=== PATIENT | female | born 1955 | race Caucasian/White ===

== ENCOUNTER → 2017-12-26 | Outpatient (CLI) | payer MEDICARE ==
--- NOTE | 2017-12-26 14:35 | RADIOLOGY REPORT (SQ) ---
EXAM DESCRIPTION: LUMBAR SPINE W/FLEX/EXT COMPLETED DATE/TIME: 12/26/2017 1:45 pm REASON FOR STUDY: LOW BACK PAIN M54.5 LOW BACK PAIN COMPARISON: None. NUMBER OF VIEWS: Seven views. TECHNIQUE: AP, lateral, obliques, flexion, extension, and sacral radiographic images acquired. LIMITATIONS: None. FINDINGS: MINERALIZATION: Normal. SEGMENTATION: Normal. No transitional anatomy. ALIGNMENT: Normal. FLEXION/EXTENSION: No instability. VERTEBRAE: Maintained height. No fracture or worrisome bone lesion. DISCS: Disc space narrowing with osteophytes at T12-L1. POSTERIOR ELEMENTS: Pedicles and facets are intact. No pars defect or posterior arch defects. HARDWARE: None in the spine. PARASPINAL SOFT TISSUES: Normal. PELVIS: Intact as visualized. No fractures or worrisome bone lesions. SI joints intact. OTHER: No other significant finding. IMPRESSION: DEGENERATIVE DISC DISEASE AT T12-L1. NO INSTABILITY ON FLEXION/EXTENSION. TECHNICAL DOCUMENTATION: JOB ID: [id number] [employer]- All Rights Reserved Reading location - IP/workstation name: [email or web address]
== END ==
LOC: OD 13:17
PROVIDERS: ATTEND Nurse Practitioner Family
DX: M54.5 Low back pain (principal); M51.35 Other intervertebral disc degeneration, thoracolumbar region
CPT/HCPCS: 72114

== ENCOUNTER 2018-05-04 23:28 | Emergency (ER) | payer MEDICARE, MEDICAID ==
[2018-05-04] MEDS ORDERED: ACETAMINOPHEN 325 MG TABLET PO ONE (23:30)
[2018-05-04] MEDS ORDERED: ACETAMINOPHEN 325 MG TABLET ONE (23:35)
[2018-05-04] MEDS ORDERED: MORPHINE SULFATE 10 MG/ML INJ IV PRN (23:56)
[2018-05-04] MEDS ORDERED: DIPH/PERTUSS(ACELL)/TETANUS VAC/PF 0.5 ML SYR (>=10YO) IM ONE (23:56)
[2018-05-04] MEDS ORDERED: PROPOFOL INJ 200 MG/20 ML VIAL IV ONE (23:56)
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
[2018-05-05 01:51] VITALS: BP 171/84
--- NOTE | 2018-05-05 08:15 | RADIOLOGY REPORT (SQ) ---
EXAM DESCRIPTION: FOREARM LEFT; NOT FOR OR FLUORO TO 1 HR COMPLETED DATE/TIME: 05/05/2018 1:23 am REASON FOR STUDY: REDUCTION COMPARISON: 05/04/2018 left forearm two views FLUOROSCOPY TIME: 8 seconds 7 digital C-arm images saved to PACS. TECHNIQUE: Intra-operative images acquired during surgical procedure to evaluate progress. NUMBER OF IMAGES: 7 digital C-arm images saved to pac's LIMITATIONS: None. FINDINGS: Intra procedural imaging demonstrates closed reduction of a distal left radius and ulna me taphysis fracture with mild persistent dorsal angulation. Please see the operative report for furthe r details IMPRESSION: Intra procedural imaging and fluoro COMMENT: Quality ID [id number]: Final reports for procedures using fluoroscopy that document radiation exp osure indices, or exposure time and number of fluorographic images (if radiation exposure indices are not available) Please consult full operative report of the attending physician for description of the procedure. TECHNICAL DOCUMENTATION: JOB ID: [id number] [employer]- All Rights Reserved Reading location - IP/workstation name: [email or web address]
--- NOTE | 2018-05-05 08:15 | RADIOLOGY REPORT (SQ) ---
EXAM DESCRIPTION: FOREARM LEFT; NOT FOR OR FLUORO TO 1 HR COMPLETED DATE/TIME: 05/05/2018 1:23 am REASON FOR STUDY: REDUCTION COMPARISON: 05/04/2018 left forearm two views FLUOROSCOPY TIME: 8 seconds 7 digital C-arm images saved to PACS. TECHNIQUE: Intra-operative images acquired during surgical procedure to evaluate progress. NUMBER OF IMAGES: 7 digital C-arm images saved to pac's LIMITATIONS: None. FINDINGS: Intra procedural imaging demonstrates closed reduction of a distal left radius and ulna me taphysis fracture with mild persistent dorsal angulation. Please see the operative report for furthe r details IMPRESSION: Intra procedural imaging and fluoro COMMENT: Quality ID [id number]: Final reports for procedures using fluoroscopy that document radiation exp osure indices, or exposure time and number of fluorographic images (if radiation exposure indices are not available) Please consult full operative report of the attending physician for description of the procedure. TECHNICAL DOCUMENTATION: JOB ID: [id number] [employer]- All Rights Reserved Reading location - IP/workstation name: [email or web address]
== END 2018-05-05 01:50 | disposition home or self-care (01) ==
LOC: ER 23:28
DX: S06.9X9A Unspecified intracranial injury with loss of consciousness of unspecified duration, initial encounter (principal); S52.502A Unspecified fracture of the lower end of left radius, initial encounter for closed fracture; S52.602A Unspecified fracture of lower end of left ulna, initial encounter for closed fracture; S50.811A Abrasion of right forearm, initial encounter; S00.81XA Abrasion of other part of head, initial encounter; R51 Headache; Y04.8XXA Assault by other bodily force, initial encounter; Y92.009 Unspecified place in unspecified non-institutional (private) residence as the place of occurrence of the external cause; I10 Essential (primary) hypertension; J44.9 Chronic obstructive pulmonary disease, unspecified; G89.29 Other chronic pain
CPT/HCPCS: 99285; 99152; 90471; 73090 ×2; 76000; 70450; 72125; 90715; 25565; A9270; J2704

== ENCOUNTER 2018-05-07 16:57 | Day surgery (SDC) | payer MEDICARE, MEDICAID ==
[~2018-05-07 16:57] MED LIST: SUCCINYLCHOLINE CHLORIDE INJ 200 MG/10 ML VIAL ONE
[2018-05-07 17:47] LABS: APPEARANCE,URINE SLIGHTLY-CLOUDY; BILIRUBIN,URINE NEGATIVE (NEGATIVE); COLOR,URINE YELLOW; GLUCOSE, URINE NEGATIVE (NEGATIVE); KETONES,URINE TRACE mg/dL (NEGATIVE); LEUKOCYTE ESTERASE,URINE SMALL (NEGATIVE); NITRITE,URINE NEGATIVE (NEGATIVE); PROTEIN,URINE NEGATIVE (NEGATIVE)
[2018-05-07] MEDS ORDERED: BUPIVACAINE HCL 0.5 % INJ/PF 30 ML SDV ONE (17:56)
[2018-05-07] MEDS ORDERED: [UNRECOGNIZED DRUG - OTHER] IV ONE (18:00)
[2018-05-07] MEDS ORDERED: D5W IV ONE (18:00)
[2018-05-07 18:01] LABS: HEMATOCRIT 35.2 % (36.0-47.0); MEAN CORPUSCULAR HEMOGLOBIN 28.9 pg (27.0-33.4); MEAN CORPUSCULAR VOLUME 85 fl (80-97); PLATELET COUNT 151 10^3/uL (150-450); RED BLOOD COUNT 4.14 10^6/uL (3.72-5.28); RED CELL DISTRIBUTION WIDTH 15.1 % (11.5-14.0); WHITE BLOOD COUNT 4.5 10^3/uL (4.0-10.5)
[2018-05-07] MEDS ORDERED: FENTANYL CITRATE INJ/PF 100 MCG/2 ML AMPUL ONE ×2 (18:03→18:05)
[2018-05-07] MEDS ORDERED: FENTANYL CITRATE INJ/PF 250 MCG/5 ML AMPULE ONE (18:03)
[2018-05-07] MEDS ORDERED: PROPOFOL INJ 200 MG/20 ML VIAL IV ONE (18:04)
[2018-05-07] MEDS ORDERED: ONDANSETRON HCL INJ/PF 4 MG/2 ML SDV ONE (18:04)
[2018-05-07] MEDS ORDERED: MIDAZOLAM 2 MG/2 ML INJ ONE (18:04)
[2018-05-07] MEDS ORDERED: DEXAMETHASONE SOD PHOSPHATE INJ 4 MG/1 ML VIAL ONE ×2 (18:04→18:05)
[2018-05-07] MEDS ORDERED: FAMOTIDINE INJ/PF 20 MG/2 ML SDV IV ONE (18:05)
[2018-05-07] MEDS ORDERED: METOCLOPRAMIDE HCL INJ/PF 10 MG/2 ML SDV ONE (18:05)
[2018-05-07 18:15] LABS: ANION GAP 9 (5-19); BLOOD UREA NITROGEN 16 mg/dL (7-20); CARBON DIOXIDE 26 mmol/L (22-30); CHLORIDE 107 mmol/L (98-107); GLUCOSE 87 mg/dL (75-110); POTASSIUM 3.8 mmol/L (3.6-5.0); SODIUM 142.1 mmol/L (137-145)
--- NOTE | 2018-05-07 18:28 | EKG REPORT ---
SEVERITY:- NORMAL ECG - SINUS RHYTHM : Confirmed by: Shane Dillon MD 07-May-2018 18:27:41
--- NOTE | 2018-05-07 18:43 | RADIOLOGY REPORT (SQ) ---
EXAM DESCRIPTION: CHEST SINGLE VIEW COMPLETED DATE/TIME: 05/07/2018 5:41 pm REASON FOR STUDY: Pre Op COMPARISON: 06/04/2012 EXAM PARAMETERS: NUMBER OF VIEWS: One view. TECHNIQUE: Single frontal radiographic view of the chest acquired. RADIATION DOSE: NA LIMITATIONS: None. FINDINGS: LUNGS AND PLEURA: No opacities, masses or pneumothorax. No pleural effusion. MEDIASTINUM AND HILAR STRUCTURES: No masses. Contour normal. HEART AND VASCULAR STRUCTURES: Heart normal in size. Normal vasculature. BONES: No acute findings. HARDWARE: None in the chest. OTHER: No other significant finding. IMPRESSION: NO ACUTE RADIOGRAPHIC FINDING IN THE CHEST. TECHNICAL DOCUMENTATION: JOB ID: [id number] [employer]- All Rights Reserved Reading location - IP/workstation name: [email or web address]
[2018-05-07] MEDS ORDERED: FENTANYL CITRATE INJ/PF 100 MCG/2 ML AMPUL IV PRN ×3 (18:54)
[2018-05-07] MEDS ORDERED: PROMETHAZINE HCL INJ 25 MG/1 ML VIAL IV PRN ×2 (18:54)
[2018-05-07] MEDS ORDERED: DIPHENHYDRAMINE HCL 50 MG/ML VIAL IV PRN (18:54)
[2018-05-07] MEDS ORDERED: ONDANSETRON HCL INJ/PF 4 MG/2 ML SDV IV PRN ×2 (18:54→20:00)
[2018-05-07] MEDS ORDERED: MORPHINE SULFATE 10 MG/ML INJ IV PRN ×2 (18:54→20:00)
[2018-05-07] MEDS ORDERED: MEPERIDINE HCL/PF INJ 25 MG/1 ML DISP.SYRIN IV PRN (18:54)
--- NOTE | 2018-05-07 20:04 | Operative Report ---
Operative Report DATE OF SURGERY: 05/07/18 PREOPERATIVE DIAGNOSIS: Left extra-articular distal radius fracture with associated distal ulnar fracture. Left carpal tunnel syndrome POSTOPERATIVE DIAGNOSIS: Same OPERATION: Open reduction of fixation left extra-articular distal radius fracture with nonoperative treatment distal ulna fracture. Open carpal tunnel release SURGEON: PRIYA DAVISON ANESTHESIA: GA COMPLICATIONS: None ESTIMATED BLOOD LOSS: Minimal PROCEDURE: Indication for above procedure: 62-year-old female who sustained a fall onto her outstretched left wrist. She was seen at the emergency room where x-rays demonstrated displaced distal radius fracture closed reduction was performed. She followed up at my office at which point she was also found to have numbness and tingling which was present at the initiation of the injury. After discussing treatment options including operative versus nonoperative intervention. Joint decision was made to proceed with operative treatment. Procedure In Detail: Patient was seen and evaluated in the preoperative holding area. The LEFT upper extremity was initialized and marked. Patient received 2g of Ancef IV for bacterial prophylaxis. Patient was taken back to the operative room where transferred to the operative table and placed under general anesthesia. Once they were adequately anesthetized and a nonsterile tourniquet was placed on his upper extremity. A surgical team debriefing was performed ensuring all instrumentation was available, the surgical procedure was discussed with possible concerns reviewed. The upper extremity was prepped with chlorhexidine and alcohol and draped in a sterile fashion. A timeout was done identifying correct patient, procedure and extremity everyone in attendance agree with this and verbalized no concerns.The extremity was exsanguinated the tourniquet was inflated to 250 mmHg. A longitudinal skin incision was made via a volar approach of Joaquín along the FCR tendon sheath. The FCR tendon sheath was opened and the FCR retracted ulnarly, the palmar cutaneous branch of the median nerve was identified and protected throughout the entirety of the case. The radial artery was identified and retracted radially. Blunt dissection was performed to the FPL which was carefully sweeped ulnarly. This brought me to the pronator quadratus which was elevated off of the distal radius via sharp dissection with a 15 blade to allow later repair. The fracture was then identified and a reduction maneuver was performed utilizing a Prim elevator. Acceptable reduction was then obtained and a Acumed 3 hole volar distal radius plate was placed into position and fixated with a K wire distally x2. AP and lateral radiographs were then obtained demonstrating appropriate placement of the plate and acceptable reduction of the fracture. Using a reduction tenaculum I was able to bring the plate down to bone distally. After drilling distally a cortical screw was used bringing the plate further down to bone, avoiding any liftoff of the plate from the volar cortex that could cause flexor tendon irritation post- operativley. Drilling the near cortex and to but not thru the far cortex a locking screw was then placed in the remaining holes. The previous cortex screw was removed and replaced with a locking screw. Two additional screws were placed into the styloid giving further stability to the radial styloid piece. AP and lateral radius were then done confirming appropriate placement of plate with no evidence of penetration intra-articular or within the DRUJ. I then turned my attention to the proximal screws. I drilled bicortically bringing the plate down to bone with a cortex screw. The remaining 2 holes proximally were drilled bicortically placing the appropriate size cortex in the proximal most hole and a locking screw in the distal shaft hole. AP and lateral radiographs were done confirming appropriate placement of the plate and reduction of the fracture there was pentecostalism of radial height, radial inclination and volar tilt. No evidence of dorsal screw prominence or intra- articular penetration of the DRUJ or radiocarpal joint. Longitudinal skin incision was made in line with the radial border of the ring finger proximal to Watkins's cardinal line to the distal wrist flexion crease. Blunt dissection performed. The palmar fascia was then incised the skin incision. The transverse carpal ligament was incised beginning proximally and extending distally within the thenar musculature the recurrent motor branch was identified indicative of a transligamentous branch this was protected while completing carpal tunnel release. The volar antebrachial fascia was then released as well. Through the distal radius incision the median nerve and palmar cutaneous branch once again identified there is no evidence of nerve injury. Tourniquet was deflated. Any peripheral bleeding was controlled until the wound was dry. The wound was copiously irrigated with normal saline. There was no evidence of DRUJ instability on examination, Negative Morley's test, No crepitus with range of motion at the radiocarpal joint or DRUJ. I then closed the pronator quadratus with interrupted 3-0 Vicryl suture. Subcutaneous tissues were closed with interrupted 4-0 Monocryl suture. The skin incisions were closed with a running horizontal mattress 4-0 nylon suture which was reinforced with Dermabond and Steri-Strips. 20 mL of 0.5% Marcaine were injected for postoperative pain control. Was dressed with sterile 4 x 4's and patient was placed in a well-padded volar splint with bias wrap. Sponge counts, instrument counts and needle counts were correct. There was no intraoperative complications patient tolerated procedure well stable to PACU. Postoperative plan: Patient will be switched to a Exos brace at her first postoperative followup visit and begin range of motion. Patient is encouraged to start vitamin C 500 mg daily for 51 days. Will obtain radiographs at followup of the wrist.
--- NOTE | 2018-05-07 20:04 | Discharge Summary ---
Discharge Summary (SDC) - Discharge Final Diagnosis: Left distal radius/ulna fracture, carpal tunnel syndrome Date of Surgery: 05/07/18 Discharge Date: 05/07/18 Condition: Good Treatment or Instructions: Schedule Follow Up w/ Dr. Scott Garrett @ [facility] to be seen in 10-14 days or as scheduled [place]: [place]: [employer]: Ice and elevate Keep splint clean/dry/intact. If your fingers become numb please unwrap the Gaetano wrap but leave the splint in place, if the sensation does not return within 30 minutes please return to the emergency department. May begin finger range of motion attempting to make full fist. Please use ibuprofen (Motrin or Advil) 600-800 mg every 8 hours as needed for pain or fever DO NOT TAKE w/ TORADOL may use once TORADOL complete. You may also use acetaminophen (Tylenol) 1000 mg every 4-6 hours as needed for pain or fever. Please be aware that many medications contain acetaminophen, do not exceed a total of 1000 mg of acetaminophen every 6 hours. If ibuprofen and acetaminophen are not sufficient for your pain you may take the Percocet/Clawson. Please be aware that the Percocet/Clawson does contain Tylenol. Stool softener of choice when on pain medication. Prescriptions: Ketorolac Tromethamine [Toradol 10 mg Tablet] 10 mg PO Q8HP PRN #10 tablet PRN Reason: Hydrocodone/Acetaminophen [Clawson 5-325 mg Tablet] 1 tab PO Q6 PRN #30 tablet PRN Reason: Referrals: ELVER SEYMOUR MD [Primary Care Provider] - Discharge Diet: As Tolerated Respiratory Treatments at Home: Deep Breathing/Coughing Discharge Activity: No Lifting Over 10 Pounds, No Lifting/Push/Pulling Report the Following to Your Physician Immediately: Fever over 101 Degrees, Unusual Bleeding, Redness, Swelling, Warmth, Increased Soreness, Numbness, Tingling Sensation
[2018-05-07] MEDS ORDERED: ROPIVACAINE HCL 0.5% INJ/PF (5 MG/1 ML) 30 ML SDV ONE (20:14)
[2018-05-07] MEDS ORDERED: LIDOCAINE 2% INJ (20 MG/ML) 20 ML MDV ONE (20:15)
[2018-05-07] MEDS ORDERED: LIDOCAINE 2%/EPINEPHRINE INJ 20 ML VIAL ONE (20:16)
[2018-05-07 22:42] VITALS: BP 133/62
--- NOTE | 2018-05-08 08:03 | RADIOLOGY REPORT (SQ) ---
EXAM DESCRIPTION: WRIST LEFT 3 VIEWS; NO CHG FLUORO COMPLETED DATE/TIME: 05/07/2018 9:00 pm REASON FOR STUDY: ORIF LEFT WRIST S52.532A COLLES' FRACTURE OF LEFT RADIUS, INIT FOR CLOS FX G56.02 CARPAL TUNNEL SYNDROME, LEFT UPPER LIMB COMPARISON: Is seen left forearm films 05/04/2018, 05/05/2018 FLUOROSCOPY TIME: 1 minutes 27 seconds 6 images saved to PACS. TECHNIQUE: Intra-operative images acquired during surgical procedure to evaluate progress. NUMBER OF IMAGES: 6 C-arm images LIMITATIONS: None. FINDINGS: Intra procedural imaging and fluoro during ORIF comminuted distal left radius fracture wit h palmar fixation plate. Good alignment. Please see the operative report for further details IMPRESSION: IMAGE(S) OBTAINED DURING PROCEDURE. COMMENT: Quality ID 145: Final reports for procedures using fluoroscopy that document radiation exp osure indices, or exposure time and number of fluorographic images (if radiation exposure indices are not available) Please consult full operative report of the attending physician for description of the procedure. TECHNICAL DOCUMENTATION: JOB ID: [id number] [employer]- All Rights Reserved Reading location - IP/workstation name: [email or web address]
--- NOTE | 2018-05-08 08:03 | RADIOLOGY REPORT (SQ) ---
EXAM DESCRIPTION: WRIST LEFT 3 VIEWS; NO CHG FLUORO COMPLETED DATE/TIME: 05/07/2018 9:00 pm REASON FOR STUDY: ORIF LEFT WRIST S52.532A COLLES' FRACTURE OF LEFT RADIUS, INIT FOR CLOS FX G56.02 CARPAL TUNNEL SYNDROME, LEFT UPPER LIMB COMPARISON: Is seen left forearm films 05/04/2018, 05/05/2018 FLUOROSCOPY TIME: 1 minutes 27 seconds 6 images saved to PACS. TECHNIQUE: Intra-operative images acquired during surgical procedure to evaluate progress. NUMBER OF IMAGES: 6 C-arm images LIMITATIONS: None. FINDINGS: Intra procedural imaging and fluoro during ORIF comminuted distal left radius fracture wit h palmar fixation plate. Good alignment. Please see the operative report for further details IMPRESSION: IMAGE(S) OBTAINED DURING PROCEDURE. COMMENT: Quality ID [id number]: Final reports for procedures using fluoroscopy that document radiation exp osure indices, or exposure time and number of fluorographic images (if radiation exposure indices are not available) Please consult full operative report of the attending physician for description of the procedure. TECHNICAL DOCUMENTATION: JOB ID: [id number] [employer]- All Rights Reserved Reading location - IP/workstation name: [email or web address]
== END 2018-05-07 23:15 | disposition home or self-care (01) ==
LOC: OROUT 16:57 → 2S 21:14 → OROUT 23:15
PROVIDERS: ATTEND Orthopaedic Surgery
DX: S52.552A Other extraarticular fracture of lower end of left radius, initial encounter for closed fracture (principal); W01.0XXA Fall on same level from slipping, tripping and stumbling without subsequent striking against object, initial encounter; Y92.000 Kitchen of unspecified non-institutional (private) residence as the place of occurrence of the external cause; G56.02 Carpal tunnel syndrome, left upper limb; M79.602 Pain in left arm; I10 Essential (primary) hypertension; J44.9 Chronic obstructive pulmonary disease, unspecified; E07.9 Disorder of thyroid, unspecified; D64.9 Anemia, unspecified; Z79.899 Other long term (current) drug therapy; Z79.891 Long term (current) use of opiate analgesic; Z79.51 Long term (current) use of inhaled steroids
CPT/HCPCS: 36415; 85027; 80048; 81001; 71045; 73110; 93005; 93010; 25607; 64721; C1713 ×7; C1769; J2795; J2250; J3490 ×3; J1100; J3010; J2765; J0330; J2405; J2704; S0028; J0690; 01830

== ENCOUNTER → 2018-10-04 | Outpatient (CLI) | payer MEDICARE, MEDICAID ==
[2018-10-04 15:43] LABS: ANION GAP 12 (5-19); BLOOD UREA NITROGEN 19 mg/dL (7-20); C-REACTIVE PROTEIN 7.1 mg/L (<10.0); CALCIUM 9.4 mg/dL (8.4-10.2); CARBON DIOXIDE 26 mmol/L (22-30); CHLORIDE 107 mmol/L (98-107); GLUCOSE 147 mg/dL (75-110); PHOSPHORUS 4.5 mg/dL (2.5-4.5); SODIUM 145.3 mmol/L (137-145)
[2018-10-04 16:00] LABS: ERYTHROCYTE SEDIMENTATION RATE 22 mm/hr (0-30)
[2018-10-04 16:15] LABS: ABSOLUTE EOSINOPHILS # (AUTO) 0.1 10^3/uL (0.0-0.6); ABSOLUTE LYMPHOCYTES (AUTO) 1.4 10^3/uL (0.5-4.7); ABSOLUTE MONOCYTES (AUTO) 0.3 10^3/uL (0.1-1.4); ABSOLUTE NEUT (AUTO) 3.5 10^3/uL (1.7-8.2); BASOPHILS % (AUTO) 0.2 % (0-2); EOSINOPHILS % (AUTO) 2.5 % (0-6); HEMOGLOBIN 12.7 g/dL (12.0-15.5); LYMPHOCYTES % (AUTO) 26.2 % (13-45); MEAN CORPUSCULAR HEMOGLOBIN 28.8 pg (27.0-33.4); MEAN CORPUSCULAR HGB CONC 33.3 g/dL (32.0-36.0); MEAN CORPUSCULAR VOLUME 86 fl (80-97); MONOCYTES % (AUTO) 5.3 % (3-13); PLATELET COUNT 189 10^3/uL (150-450); RED CELL DISTRIBUTION WIDTH 16.1 % (11.5-14.0); SEGMENTED NEUTROPHILS % (AUTO) 65.8 % (42-78); TOTAL CELLS COUNTED % (AUTO) 100 %; WHITE BLOOD COUNT 5.3 10^3/uL (4.0-10.5)
== END ==
LOC: OD 14:18
PROVIDERS: ATTEND Orthopaedic Surgery
DX: M25.532 Pain in left wrist (principal)
CPT/HCPCS: 36415; 80048; 82306; 84100; 85025; 85652; 86140

== ENCOUNTER 2018-11-05 10:59 | Day surgery (SDC) | payer MEDICARE, MEDICAID ==
[2018-10-15 09:55] LABS: ABSOLUTE EOSINOPHILS # (AUTO) 0.1 10^3/uL (0.0-0.6); ABSOLUTE LYMPHOCYTES (AUTO) 1.5 10^3/uL (0.5-4.7); ABSOLUTE MONOCYTES (AUTO) 0.4 10^3/uL (0.1-1.4); ABSOLUTE NEUT (AUTO) 2.5 10^3/uL (1.7-8.2); BASOPHILS % (AUTO) 0.3 % (0-2); EOSINOPHILS % (AUTO) 2.9 % (0-6); HEMATOCRIT 35.1 % (36.0-47.0); HEMOGLOBIN 11.7 g/dL (12.0-15.5); LYMPHOCYTES % (AUTO) 33.3 % (13-45); MEAN CORPUSCULAR HEMOGLOBIN 28.5 pg (27.0-33.4); MEAN CORPUSCULAR HGB CONC 33.3 g/dL (32.0-36.0); MEAN CORPUSCULAR VOLUME 86 fl (80-97); MONOCYTES % (AUTO) 8.1 % (3-13); PLATELET COUNT 170 10^3/uL (150-450); RED CELL DISTRIBUTION WIDTH 15.6 % (11.5-14.0); SEGMENTED NEUTROPHILS % (AUTO) 55.4 % (42-78); TOTAL CELLS COUNTED % (AUTO) 100 %; WHITE BLOOD COUNT 4.6 10^3/uL (4.0-10.5)
[2018-10-15 09:56] LABS: APPEARANCE,URINE SLIGHTLY-CLOUDY; BILIRUBIN,URINE NEGATIVE (NEGATIVE); COLOR,URINE YELLOW; GLUCOSE, URINE NEGATIVE (NEGATIVE); KETONES,URINE NEGATIVE (NEGATIVE); LEUKOCYTE ESTERASE,URINE TRACE (NEGATIVE); NITRITE,URINE NEGATIVE (NEGATIVE); PROTEIN,URINE NEGATIVE (NEGATIVE); URINE SPECIFIC GRAVITY 1.023; UROBILINOGEN,URINE NEGATIVE mg/dL (<2.0)
[2018-10-15 10:30] LABS: ANION GAP 9 (5-19); BLOOD UREA NITROGEN 17 mg/dL (7-20); CALCIUM 8.9 mg/dL (8.4-10.2); CARBON DIOXIDE 27 mmol/L (22-30); CHLORIDE 108 mmol/L (98-107); GLUCOSE 93 mg/dL (75-110); PHOSPHORUS 4.7 mg/dL (2.5-4.5); POTASSIUM 4.4 mmol/L (3.6-5.0)
--- NOTE | 2018-10-15 17:42 | EKG REPORT ---
SEVERITY:- NORMAL ECG - SINUS RHYTHM : Confirmed by: Kenyatta Rodriguez MD 15-Oct-2018 17:41:56
[~2018-11-05 10:59] MED LIST changes: +CEFAZOLIN 2 GM/D5W RTU 2 GM/50 ML RTUPB IV PRN; +LACTATED RINGERS 1000 ML IV PRN; +LIDOCAINE 0.5% INJ-PF (5 MG/ML) 50 ML SDV SUBCUT PRN; -SUCCINYLCHOLINE CHLORIDE INJ 200 MG/10 ML VIAL ONE
[2018-11-05] MEDS ORDERED: CEFAZOLIN 2 GM/D5W RTU 2 GM/50 ML RTUPB IV ONE (11:20)
[2018-11-05] MEDS ORDERED: SUCCINYLCHOLINE CHLORIDE INJ 200 MG/10 ML VIAL ONE (12:12)
[2018-11-05] MEDS ORDERED: METOCLOPRAMIDE HCL INJ/PF 10 MG/2 ML SDV ONE (12:12)
[2018-11-05] MEDS ORDERED: BUPIVACAINE HCL 0.5 % INJ/PF 30 ML SDV ONE (13:35)
[2018-11-05] MEDS ORDERED: LIDOCAINE 2% INJ-PF (100 MG/5 ML) SYRINGE ONE (13:48)
[2018-11-05] MEDS ORDERED: FENTANYL CITRATE INJ/PF 250 MCG/5 ML AMPULE ONE (13:48)
[2018-11-05] MEDS ORDERED: HYDROMORPHONE HCL INJ/PF 2 MG/ML AMPULE ONE (13:49)
[2018-11-05] MEDS ORDERED: MIDAZOLAM 2 MG/2 ML INJ ONE (13:49)
[2018-11-05] MEDS ORDERED: PROPOFOL INJ 200 MG/20 ML VIAL IV ONE ×2 (13:50→13:55)
[2018-11-05] MEDS ORDERED: SCOPOLAMINE HYDROBROMIDE 1.5 MG PATCH.TD72 ONE (14:12)
[2018-11-05] MEDS ORDERED: LIDOCAINE 2%/EPINEPHRINE INJ 20 ML VIAL ONE (14:21)
[2018-11-05] MEDS ORDERED: ROPIVACAINE HCL 0.5% INJ/PF (5 MG/1 ML) 30 ML SDV ONE (14:22)
[2018-11-05] MEDS ORDERED: LIDOCAINE 2% INJ (20 MG/ML) 20 ML MDV ONE (14:22)
[2018-11-05] MEDS ORDERED: ONDANSETRON HCL INJ/PF 4 MG/2 ML SDV IV PRN (17:05)
[2018-11-05] MEDS ORDERED: MORPHINE SULFATE 10 MG/ML INJ IV PRN (17:05)
[2018-11-05] MEDS ORDERED: HYDROCODONE/ACETAMINOPHEN 5-325 MG TABLET PO PRN (17:05)
--- NOTE | 2018-11-05 17:06 | Discharge Summary ---
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 Scott Garertt @ [facility] for Surgery to be seen in 10-14 days or as scheduled [place]: [place]: [place]: Ice and elevate Keep splint clean/dry/intact, do not remove. If your fingers become numb please unwrap the Gaetano wrap but leave the splint in place, if the sensation does not return within 30 minutes please return to the emergency department. May begin finger range of motion attempting to make full fist. Stool softener of choice when on pain medication. ORAL NARCOTIC MEDICATION: You have been given a prescription for pain control. This medication is a narcotic. It's best taken with food, as nausea can result if taken on an empty stomach. Don't operate machinery or drive within six hours of taking this medication. Do not combine this medicine with alcohol, or with any medication which can cause sedation (such as cold tablets or sleeping pills) unless you get permission from the physician. Narcotics tend to cause constipation. If possible, drink plenty of fluids and eat a diet high in fiber and fruits. Please be aware that prescription narcotics also have the potential for abuse. People become addicted to these medications because of the general sense of wellbeing that they induce. This feeling along with a significant reduction in tension, anxiety, and aggression provides a stimulating seductive quality to these drugs. Once your pain is under control, we encourage you to discard your unused narcotics. Prescriptions: Hydrocodone Bit/Acetaminophen [Hydrocodon-Acetaminophn 10-325] 1 tab PO QID PRN #22 tablet PRN Reason: Referrals: ELVER SEYMOUR MD [Primary Care Provider] - Discharge Diet: As Tolerated Respiratory Treatments at Home: Deep Breathing/Coughing Discharge Activity: No Lifting Over 10 Pounds, No Lifting/Push/Pulling Report the Following to Your Physician Immediately: Fever over 101 Degrees, Unusual Bleeding, Redness, Swelling, Warmth, Increased Soreness
--- NOTE | 2018-11-05 17:14 | RADIOLOGY REPORT (SQ) ---
EXAM DESCRIPTION: NO CHG FLUORO; WRIST LEFT 3 VIEWS COMPLETED DATE/TIME: 11/05/2018 5:05 pm REASON FOR STUDY: HARDWARE REMOVAL/NEW HARDWARE COMPARISON: None. FLUOROSCOPY TIME: 1 minutes 33 seconds 4 Images saved to PACS LIMITATIONS: None. PROCEDURE: Hardware removal FINDINGS: Images from fluoro show a compression plate on the distal radius with multiple screws. IMPRESSION: Hardware removal. Refer to operative note for further information. COMMENT: PQRS 6045F: Fluoroscopy time of the procedure is documented in the report. TECHNICAL DOCUMENTATION: JOB ID: [id number] [employer]- All Rights Reserved Reading location - IP/workstation name: [email or web address]
--- NOTE | 2018-11-05 17:14 | Operative Report ---
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 Removal of hardware left wrist. 2. Takedown nonunion with revision ORIF placement of autogenous olecranon autograft SURGEON: PRIYA DAVISON ANESTHESIA: GA COMPLICATIONS: None ESTIMATED BLOOD LOSS: Minimal PROCEDURE: Indication for above procedure: 63-year-old female who sustained a distal radius fracture. Underwent successful open reduction internal fixation however postoperatively patient developed pain secondary to nonunion ultimate hardware failure at that point we discussed treatment options including operative versus nonoperative intervention. Attempted nonoperative treatment with a bone stimulator and metabolic work-up which was negative and patient continued to have persistent nonunion. Decision was made to proceed with operative intervention. Procedure In Detail: Patient was seen and evaluated in the preoperative holding area. The LEFT upper extremity was initialized and marked. Patient received 2g of Ancef IV for bacterial prophylaxis. Patient was taken back to the operative room where transferred to the operative table and placed under general anesthesia. Once they were adequately anesthetized a nonsterile tourniquet was placed on the upper extremity. A surgical team debriefing was performed ensuring all instrumentation was available, the surgical procedure was discussed with possible concerns reviewed. The upper extremity was prepped with chlorhexidine and alcohol and draped in a sterile fashion. A timeout was done identifying correct patient, procedure and extremity everyone in attendance agree with this and verbalized no concerns. The extremity was exsanguinated the tourniquet was inflated to 250 mmHg. Procedure In Detail: Patient was seen and evaluated in the preoperative holding area. The upper extremity was initialized and marked. Patient received 2g of Ancef IV for bacterial prophylaxis. Patient was taken back to the operative room where transferred to the operative table and placed under general anesthesia. Once they were adequately anesthetized and a nonsterile tourniquet was placed on his upper extremity. A surgical team debriefing was performed ensuring all instrumentation was available, the surgical procedure was discussed with possible concerns reviewed. The upper extremity was prepped with chlorhexidine and alcohol and draped in a sterile fashion. A timeout was done identifying correct patient, procedure and extremity everyone in attendance agree with this and verbalized no concerns.The extremity was exsanguinated the tourniquet was inflated to 250 mmHg. A longitudinal skin incision was made via a volar approach of Joaquín along the FCR tendon sheath. The FCR tendon sheath was opened and the FCR retracted ulnarly, the palmar cutaneous branch of the median nerve was identified and prot ected throughout the entirety of the case. The radial artery was identified and retracted radially. Meticulous dissection was performed with tenolysis of the FPL tendon. Sharp dissection was performed to remove scar tissue over the volar plate. The 2 radial styloid screws were then removed along with the proximal shaft screws. The heads of the 3 Distal Row screws were removed and plate easily removed. There was enough of the distal row screws remaining to successfully remove all the patient's hardware. Wound was then copiously irrigated with normal saline. There was evidence of motion at the fracture site and atrophic nonunion. Decision was made to proceed with harvesting autogenous bone graft and repair in the nonunion site. The nonunion site was then opened and the fracture edges debrided until normal- appearing bone including cancellus bone proximally and distally was identified. A curette was placed down the radial shaft and into the distal fragment. Any residual radial translation was corrected and compression was performed at the fracture site. Fracture was provisionally held with an oblique K wire. Attention then turned to harvesting of the bone graft. Under C-arm fluoroscopy the appropriate location of the olecranon bone graft was determined. Longitudinal skin incision was made any peripheral bleeding was controlled with bipolar cautery. Periosteum was then elevated and the bone graft harvester was utilized to obtain bone graft from the proximal olecranon. Cancellus bone graft was then placed in the back table. Wound was copiously irrigated with normal saline. At the completion of the case the defect was filled with Vitoss synthetic bone graft. Fascia was closed with interrupted 3-0 Vicryl suture. Subcutaneous tissues closed with 3-0 Vicryl suture. Skin was closed with horizontal mattress 3-0 nylon. With the fracture provisionally reduced a extra-articular Acumed plate was utilized as opposed to a distal plate that was used previously and failed. A larger 5 hole extra-articular Acumed plate was secured with K wires proximally and distally. C-arm fluoroscopy was obtained confirming appropriate placement of the plate further providing compression at the nonunion site a reduction tenaculum was placed. Plate was provisionally fixed with K wires distally. C- arm fluoroscopy demonstrate acceptable alignment and thus fixation was secured proximally within the dynamic oblong hole with bicortical fixation. Fixation was then completed into the distal row with the appropriate size locking screws which were extended further than the previous locking screws. I did attempt placement of a variable angle screw unfortunately was unable to get adequate alignment and thus the radial styloid was fixated with 2 locking screws. At completion there is no evidence of intra-articular screw penetration and optimal fixation. Proximal fixation was then completed with additional bicortical screw and 3 locking screws. The wound was copiously irrigated with normal saline. Nonunion site was impacted with remaining cancellus bone however the amount of compression limited amount of defect or gapping to very minimal. This was then further impacted with remaining Vitoss bone graft. C-arm fluoroscopy was then obtained confirming acceptable reduction and fixation. There was no evidence of motion at the fracture site under dynamic fluoroscopy and direct visualization. There was no evidence of DRUJ instability on examination, Negative Morley's test, No crepitus with range of motion at the radiocarpal joint or DRUJ. Subcutaneous tissues were closed with interrupted 4-0 Monocryl suture. The skin was closed with a running 3-0 nylon horizontal mattress suture was dressed with sterile 4 x 4's and patient was placed in sugar tong splint. Sponge counts, instrument counts and needle counts were correct. There was no intraoperative complications patient tolerated procedure well stable to PACU. Postoperative plan: Patient is to begin her bone stimulator immediately. Will be transition to a short arm cast at follow-up. Will obtain x-rays at follow-up.
--- NOTE | 2018-11-05 17:14 | RADIOLOGY REPORT (SQ) ---
EXAM DESCRIPTION: NO CHG FLUORO; WRIST LEFT 3 VIEWS COMPLETED DATE/TIME: 11/05/2018 5:05 pm REASON FOR STUDY: HARDWARE REMOVAL/NEW HARDWARE COMPARISON: None. FLUOROSCOPY TIME: 1 minutes 33 seconds 4 Images saved to PACS LIMITATIONS: None. PROCEDURE: Hardware removal FINDINGS: Images from fluoro show a compression plate on the distal radius with multiple screws. IMPRESSION: Hardware removal. Refer to operative note for further information. COMMENT: PQRS 6045F: Fluoroscopy time of the procedure is documented in the report. TECHNICAL DOCUMENTATION: JOB ID: [id number] [facility]- All Rights Reserved Reading location - IP/workstation name: [email or web address]
[2018-11-05] MEDS ORDERED: MEPERIDINE HCL/PF INJ 25 MG/1 ML DISP.SYRIN IV PRN (17:46)
[2018-11-05] MEDS ORDERED: FENTANYL CITRATE INJ/PF 100 MCG/2 ML AMPUL IV PRN ×3 (17:46)
[2018-11-05] MEDS ORDERED: DIPHENHYDRAMINE HCL 50 MG/ML VIAL IV PRN (17:46)
[2018-11-05] MEDS ORDERED: HYDROCODONE/ACETAMINOPHEN 5-325 MG TABLET ONE (18:16)
[2018-11-05 20:30] VITALS: BP 138/75
== END 2018-11-05 19:20 | disposition home or self-care (01) ==
LOC: OROUT 10:59
PROVIDERS: ATTEND Orthopaedic Surgery
DX: S52.532K Colles' fracture of left radius, subsequent encounter for closed fracture with nonunion (principal); X58.XXXD Exposure to other specified factors, subsequent encounter; G56.02 Carpal tunnel syndrome, left upper limb; M25.532 Pain in left wrist; R06.02 Shortness of breath; I10 Essential (primary) hypertension; E78.00 Pure hypercholesterolemia, unspecified; E07.9 Disorder of thyroid, unspecified; Z01.812 Encounter for preprocedural laboratory examination; Z79.899 Other long term (current) drug therapy; Z79.51 Long term (current) use of inhaled steroids; Z88.5 Allergy status to narcotic agent
CPT/HCPCS: 25405; 20680; 93005; 36415; 84100; 85025; 80048; 81001; 82306; 73110; 93010; C1713 ×10; C1769; C1898; C2622; J2795; J2250; J3490 ×2; J3010; J2001; J2765; J0330; J2704; J0690; A9270; 01830; J1170

== ENCOUNTER 2018-11-06 07:40 | Observation (INO) | payer MEDICARE, MEDICAID ==
[2018-11-06 09:39] LABS: ABSOLUTE EOSINOPHILS # (AUTO) 0.1 10^3/uL (0.0-0.6); ABSOLUTE LYMPHOCYTES (AUTO) 1.1 10^3/uL (0.5-4.7); ABSOLUTE MONOCYTES (AUTO) 0.6 10^3/uL (0.1-1.4); ABSOLUTE NEUT (AUTO) 5.8 10^3/uL (1.7-8.2); BASOPHILS % (AUTO) 0.3 % (0-2); EOSINOPHILS % (AUTO) 1.3 % (0-6); HEMATOCRIT 33.7 % (36.0-47.0); HEMOGLOBIN 11.2 g/dL (12.0-15.5); LYMPHOCYTES % (AUTO) 14.4 % (13-45); MEAN CORPUSCULAR HGB CONC 33.1 g/dL (32.0-36.0); MEAN CORPUSCULAR VOLUME 85 fl (80-97); MONOCYTES % (AUTO) 8.2 % (3-13); PLATELET COUNT 177 10^3/uL (150-450); RED BLOOD COUNT 3.99 10^6/uL (3.72-5.28); RED CELL DISTRIBUTION WIDTH 15.3 % (11.5-14.0); SEGMENTED NEUTROPHILS % (AUTO) 75.8 % (42-78); TOTAL CELLS COUNTED % (AUTO) 100 %; WHITE BLOOD COUNT 7.7 10^3/uL (4.0-10.5)
[2018-11-06 09:43] LABS: APPEARANCE,URINE CLEAR; BILIRUBIN,URINE NEGATIVE (NEGATIVE); COLOR,URINE YELLOW; GLUCOSE, URINE NEGATIVE (NEGATIVE); KETONES,URINE NEGATIVE (NEGATIVE); LEUKOCYTE ESTERASE,URINE TRACE (NEGATIVE); NITRITE,URINE NEGATIVE (NEGATIVE); PROTEIN,URINE NEGATIVE (NEGATIVE); URINE SPECIFIC GRAVITY 1.015; UROBILINOGEN,URINE NEGATIVE mg/dL (<2.0)
[2018-11-06] MEDS ORDERED: HYDROCODONE/ACETAMINOPHEN 5-325 MG TABLET PO ONE (09:44)
[2018-11-06 09:47] LABS: INTERNATIONAL RATION (INR) 0.99; PROTHROMBIN TIME 13.5 SEC (11.4-15.4)
[2018-11-06 10:03] LABS: ALANINE AMINOTRANSFERASE 26 U/L (9-52); ALBUMIN 3.4 g/dL (3.5-5.0); ALKALINE PHOSPHATASE 93 U/L (38-126); ANION GAP 6 (5-19); ASPARTATE AMINO TRANSFERASE 30 U/L (14-36); BILIRUBIN,DIRECT 0.3 mg/dL (0.0-0.4); BILIRUBIN,TOTAL 0.4 mg/dL (0.2-1.3); BLOOD UREA NITROGEN 10 mg/dL (7-20); CALCIUM 8.5 mg/dL (8.4-10.2); CARBON DIOXIDE 25 mmol/L (22-30); CHLORIDE 111 mmol/L (98-107); GLUCOSE 117 mg/dL (75-110); POTASSIUM 3.7 mmol/L (3.6-5.0); SODIUM 142.4 mmol/L (137-145)
--- NOTE | 2018-11-06 10:48 | RADIOLOGY REPORT (SQ) ---
EXAM DESCRIPTION: FOREARM LEFT COMPLETED DATE/TIME: 11/06/2018 10:27 am REASON FOR STUDY: fall post surgery yesterday COMPARISON: 05/05/2018, 05/04/2018 NUMBER OF VIEWS: Two views. TECHNIQUE: Two radiographic images acquired of the left forearm, including elbow and wrist in at ambar st one projection. LIMITATIONS: Cast material obscures fine detail. FINDINGS: MINERALIZATION: Decreased mineralization about the wrist likely secondary to disuse. BONES: Plate and screw fixation hardware at the distal radius. There is evidence of prior distal rad ius and ulna fractures with callus formation and heterotopic ossification. Alignment is near anatomi c. Residual fracture line visualized at the distal radius. Alignment is near anatomic. No addition al acute fractures identified. SOFT TISSUES: Cast material overlies forearm. Diffuse soft tissue swelling about the hand. OTHER: No other significant finding. IMPRESSION: 1. Evidence of prior distal radius and ulnar fractures with evidence of interval healin g. Distal radial plate and screw fixation hardware with persistent fracture line at the distal radiu s. Alignment is near anatomic. 2. Diffuse soft tissue swelling about the hand. TECHNICAL DOCUMENTATION: JOB ID: [id number] [employer]- All Rights Reserved Reading location - IP/workstation name: [email or web address]
--- NOTE | 2018-11-06 10:51 | RADIOLOGY REPORT (SQ) ---
EXAM DESCRIPTION: CHEST SINGLE VIEW COMPLETED DATE/TIME: 11/06/2018 10:27 am REASON FOR STUDY: fall COMPARISON: 05/07/2018 EXAM PARAMETERS: NUMBER OF VIEWS: One view. TECHNIQUE: Single frontal radiographic view of the chest acquired. RADIATION DOSE: NA LIMITATIONS: None. FINDINGS: LUNGS AND PLEURA: Linear left lingular opacities, likely atelectasis. No additional conso lidation, pleural effusion or pneumothorax pre MEDIASTINUM AND HILAR STRUCTURES: No masses. Contour normal. HEART AND VASCULAR STRUCTURES: Heart normal in size. Normal vasculature. BONES: No acute findings. HARDWARE: None in the chest. Prior cholecystectomy. OTHER: No other significant finding. IMPRESSION: Linear left lingular opacity, likely atelectasis. No other evidence of acute cardiopulm onary process. TECHNICAL DOCUMENTATION: JOB ID: [id number] [employer]- All Rights Reserved Reading location - IP/workstation name: [email or web address]
--- NOTE | 2018-11-06 11:59 | ER Document Report ---
ED General - General Chief Complaint: Arm Pain Stated Complaint: FALL/ELBOW PAIN Time Seen by Provider: 11/06/18 08:31 Primary Care Provider: ELVER SEYMOUR MD [Primary Care Provider] - Follow up as needed Mode of Arrival: Stretcher Information source: Patient, Relative Notes: Patient is a 63-year-old female who was brought to the emergency room by her family with complaint of a fall. Patient has recent pertinent history and that she underwent a left arm surgery yesterday by Dr. Garrett for repair of her fracture sustained back in April that was not healing. According to family she was in surgery approximately 2-1/2 hours. After surgery they got home around 7 PM at night. Patient went straight to her recliner chair and fell asleep and was sleeping all night long. According to family somewhere around 7 AM this morning. She got up to go to the bathroom and took 1 or 2 steps and fell "landing on her back. She denies any loss of consciousness or other injuries thinks that she may have hit her recently repaired left arm. She was able to get herself to her feet and took a few more steps into the kitchen where she states her legs gave out again. The family states that they were able to get to her door unable to get her to her feet because her legs were "jerky". When asked what jerking means family states that they were just spastic. When they reach down to help her up with her good arm that arm was also spastic. Unable to have any strength in it at all and was jerky as well. Family states also that during this entire time as well she had slurred speech. She had trouble finding her words and did not pronounce them well. Family then had to contact EMS to come to help get her up and bring her in. According to the patient when she got up out of her chair the original time her legs just gave out on her. She has a history of COPD, is on ADHD medications on muscle relaxers and chronic pain medications. Family states that she did not receive any pain medication from the time she got home from surgery yesterday through h er arrival here in the emergency room. She denies any nausea or vomiting no shortness of breath. She also denies no chest pain. TRAVEL OUTSIDE OF THE [place] IN LAST 30 DAYS: No - HPI Onset: Just prior to arrival Onset/Duration: Sudden, Persistent Quality of pain: No pain Severity: Moderate Pain Level: 3 Associated symptoms: None Exacerbated by: Standing, Walking Relieved by: Denies Similar symptoms previously: No Recently seen / treated by doctor: Yes - Related Data Allergies/Adverse Reactions: oxycodone [From Percocet] Adverse Reaction (Verified 11/06/18 07:42) Nausea Past Medical History - General Information source: Patient, Relative - Social History Smoking Status: Unknown if Ever Smoked Cigarette use (# per day): No Chew tobacco use (# tins/day): No Smoking Education Provided: No Frequency of alcohol use: None Drug Abuse: None Family History: Reviewed & Not Pertinent Patient has suicidal ideation: No Patient has homicidal ideation: No - Past Medical History Cardiac Medical History: Reports: Hx Hypercholesterolemia, Hx Hypertension - PO MEDS Denies: Hx Coronary Artery Disease, Hx Heart Attack Pulmonary Medical History: Reports: Hx COPD Denies: Hx Asthma, Hx Bronchitis - HX. OF BRONCHITIS, Hx Pneumonia Neurological Medical History: Denies: Hx Cerebrovascular Accident, Hx Seizures Endocrine Medical History: Reports: Hx Hypothyroidism Renal/ Medical History: Denies: Hx Peritoneal Dialysis Musculoskeletal Medical History: Reports Hx Arthritis - ARTHRITIS IN BACK - ON PAIN MANAGEMENT, Reports Hx Musculoskeletal Deformity Psychiatric Medical History: Reports: Hx Anxiety, Hx Attention Deficit Hyperactivity Disorder, Hx Bipolar Disorder, Hx Depression, Hx Schizophrenia Past Surgical History: Reports: Hx Cholecystectomy, Hx Hysterectomy - Immunizations Immunizations up to date: Yes Hx Diphtheria, Pertussis, Tetanus Vaccination: Yes - 05/04/2018 IN THE ER Review of Systems - Review of Systems Constitutional: See HPI, Weakness EENT: No symptoms reported Cardiovascular: No symptoms reported Respiratory: No symptoms reported Gastrointestinal: No symptoms reported Genitourinary: No symptoms reported Female Genitourinary: No symptoms reported Musculoskeletal: See HPI Skin: No symptoms reported Hematologic/Lymphatic: No symptoms reported Neurological/Psychological: No symptoms reported, Numbness -: Yes All other systems reviewed and negative Physical Exam - Vital signs Vitals: Temp Pulse Resp BP Pulse Ox 98.4 F 71 16 126/64 H 94 11/06/18 07:46 11/06/18 07:46 11/06/18 07:46 11/06/18 07:46 11/06/18 07:46 Interpretation: Normal - Notes Notes: PHYSICAL EXAMINATION: GENERAL: Patient is a well-nourished well-developed 63-year-old female who is in no apparent distress on physical exam however she does appear uncomfortable HEAD: Atraumatic, normocephalic. EYES: Pupils equal round and reactive to light, extraocular movements are intact but are sporadic. Patient has difficult time with a smooth tracking effort. She will follow the finger but then loses concentration and asked to restart again. ENT: Nares patent, oropharynx clear without exudates. Moist mucous membranes. NECK: Normal range of motion, supple without lymphadenopathy LUNGS: Breath sounds clear to auscultation bilaterally and equal. No wheezes rales or rhonchi. HEART: Regular rate and rhythm without murmurs ABDOMEN: Soft, nontender, nondistended abdomen. No guarding, no rebound. No masses appreciated. Female : deferred Musculoskeletal: Patient's left arm is still wrapped from surgery. And held within the sling. She has good cap refill in the nailbeds of the fingers. No other abnormalities noted in the upper or lower extremities. There is no tenderness to palpation across the cervical thoracic or lumbar spines. NEUROLOGICAL: Patient's NIH scale was approximately 4. She is very difficult to do a complete neurologic exam on given the fact that she has left arm in a sling and both lower extremities have had knee surgeries. However she has drift in both the right and left lower extremity. She has discrepancies in sensation from right to left with the right being abnormal. Patient at times is unable to discern even touch to the upper extremity or lower extremity. Although she has good DTRs. She has good strength against resistance and ankle flexion and extension. Patient is also having some slight difficulty with mentation and getting words out fluidly. PSYCH: Normal mood, normal affect. SKIN: Warm, Dry, normal turgor, no rashes or lesions noted. Course - Vital Signs Vital signs: Temp Pulse Resp BP Pulse Ox 98.4 F 71 12 112/69 94 11/06/18 07:46 11/06/18 07:46 11/06/18 10:01 11/06/18 10:01 11/06/18 10:01 - Laboratory Result Diagrams: 11/06/18 09:25 11/06/18 09:25 Laboratory results interpreted by me: 11/06/18 11/06/18 11/06/18 09:25 09:25 09:25 Hgb 11.2 L Hct 33.7 L RDW 15.3 H Chloride 111 H Glucose 117 H Total Protein 6.0 L Albumin 3.4 L Ur Leukocyte Esterase TRACE H Discharge - Discharge Clinical Impression: Aphasia, Neurological deficit, transient Condition: Stable Disposition: ADMITTED OBSERVATION Admitting Provider: Calli (Hospitalist) Unit Admitted: Telemetry Referrals: ELVER SEYMOUR MD [Primary Care Provider] - Follow up as needed
--- NOTE | 2018-11-06 12:12 | RADIOLOGY REPORT (SQ) ---
EXAM DESCRIPTION: CT HEAD WITHOUT COMPLETED DATE/TIME: 11/06/2018 11:40 am REASON FOR STUDY: CVA out of window COMPARISON: 05/05/2018 TECHNIQUE: Axial images acquired through the brain without intravenous contrast. Images reviewed wi th bone, brain and subdural windows. Additional sagittal and coronal reconstructions were generated. Images stored on PACS. All CT scanners at this facility use dose modulation, iterative reconstruction, and/or weight based d osing when appropriate to reduce radiation dose to as low as reasonably achievable (ALARA). [facility]: Dose Right [facility]: CareDose [facility]: Dose Right [facility]: Teradose 4D [facility]: ROAM Data RADIATION DOSE: CT Rad equipment meets quality standard of care and radiation dose reduction techniq ues were employed. CTDIvol: 53.2 mGy. DLP: 991 mGy-cm. mGy. LIMITATIONS: None. FINDINGS: VENTRICLES: Normal size and contour. CEREBRUM: No masses. No hemorrhage. No midline shift. No evidence for acute infarction. Normal gra y/white matter differentiation. No areas of low density in the white matter. CEREBELLUM: No masses. No hemorrhage. No alteration of density. No evidence for acute infarction. EXTRAAXIAL SPACES: No fluid collections. No masses. ORBITS AND GLOBE: No intra- or extraconal masses. Normal contour of globe without masses. CALVARIUM: No fracture. PARANASAL SINUSES: No fluid or mucosal thickening. SOFT TISSUES: No mass or hematoma. OTHER: No other significant finding. IMPRESSION: No evidence of large vascular territory infarct or intracranial hemorrhage. MRI would b e more sensitive for evaluation of acute ischemic event. EVIDENCE OF ACUTE STROKE: NO. COMMENT: Quality ID # [id number]: Final reports with documentation of one or more dose reduction techniques (e.g., Automated exposure control, adjustment of the mA and/or kV according to patient size, use of iterative reconstruction technique) TECHNICAL DOCUMENTATION: JOB ID: [id number] [employer]- All Rights Reserved Reading location - IP/workstation name: [email or web address]
--- NOTE | 2018-11-06 15:48 | PDOC H&P ---
History of Present Illness Admission Date/PCP: 11/06/18 14:13 ELVER SEYMOUR MD History of Present Illness: LOGAN LEMONS is a 63 year old female on multiple sedating psychiatric medi cations who had a surgical repair of her fractured bone in her left arm yesterday. Apparently she tolerated the procedure well and went home afterwards to recuperate. She took her evening meds including her sleeping medications and her pain medicine. When she got up this morning she went to get up off the couch she felt weak and wobbly and her legs went out from under her. She was able to get up under her own power and she walked into the kitchen where apparently it happened again. She did not hit her head or lose consciousness. She does not have any slurred speech or other focal neurological deficit. Her blood pressures are well within the normal range. Her vital signs are stable. She has not had any trouble chewing or swallowing or speaking. She said nothing like this is ever happened before. She is asymptomatic now. Her labs were unremarkable. Her head CT was unremarkable. MRI was not done because she just had hardware placed on her arm yesterday. She is being admitted for observation. Past Medical History Cardiac Medical History: Reports: Hyperlipidema, Hypertension - PO MEDS Denies: Coronary Artery Disease, Myocardial Infarction Pulmonary Medical History: Reports: Chronic Obstructive Pulmonary Disease (COPD) Denies: Asthma, Bronchitis - HX. OF BRONCHITIS, Pneumonia Neurological Medical History: Denies: Seizures Endocrine Medical History: Reports: Hypothyroidism Musculoskeltal Medical History: Reports: Arthritis - ARTHRITIS IN BACK - ON PAIN MANAGEMENT Psychiatric Medical History: Reports: Attention Deficit Hyperactivity Disorder, Bipolar Disorder, Depression Hematology: Denies: Anemia Past Surgical History Past Surgical History: Reports: Cholecystectomy, Hysterectomy Social History Smoking Status: Unknown if Ever Smoked - Advance Directive Resuscitation Status: Full Code Family History Family History: Reviewed & Not Pertinent Parental Family History Reviewed: Yes - No history of stroke Children Family History Reviewed: NA Sibling(s) Family History Reviewed.: Yes - Hypertension Medication/Allergy Home Medications: Aripiprazole [Abilify 30 mg Tablet] 30 mg PO DAILY 06/04/12 Carbamazepine [Tegretol 100 mg Chewable Tablet] 100 mg PO BID 06/04/12 Levothyroxine Sodium [Synthroid 0.025 mg Tablet] 50 mcg PO DAILY 06/04/12 Trazodone HCl [Desyrel] 250 mg PO QHS PRN 06/04/12 Baclofen [Baclofen 10 mg Tablet] 10 mg PO TID 05/06/18 Bimatoprost [Lumigan 0.01% Oph Soln 2.5 ml/Bottle] 2 drop OP QHS 05/06/18 Celecoxib [Celebrex] 200 mg PO DAILY 05/06/18 Dexlansoprazole [Dexilant 60 mg Capsule] 60 mg PO DAILY 05/06/18 Gabapentin [Neurontin 300 mg Capsule] 300 mg PO TID 05/06/18 Isosorbide Mononitrate [Imdur 30 mg Tablet.er] 30 mg PO QHS 05/06/18 Metoprolol Succinate [Toprol Xl] 25 mg PO BID 05/06/18 Quetiapine Fumarate [Seroquel] 50 mg PO QHS 05/06/18 Simvastatin 40 mg PO QHS 05/06/18 Topiramate [Topamax] 100 mg PO QHS 05/06/18 Venlafaxine HCl [Effexor Xr] 150 mg PO DAILY 05/06/18 Bupropion HCl [Wellbutrin Xl 300mg 24hr Tablet] 300 mg PO DAILY 10/15/18 Dextroamphetamine/Amphetamine [Adderall 30 mg Tablet] 30 mg PO DAILY 10/15/18 Meloxicam [Mobic] 7.5 mg PO BID 10/15/18 Hydrocodone Bit/Acetaminophen [Hydrocodon-Acetaminophn 10-325] 1 tab PO QID PRN #22 tablet 11/05/18 Dextroamphetamine/Amphetamine [Adderall 10 mg Tablet] 10 mg PO DAILY 11/06/18 Allergies/Adverse Reactions: oxycodone [From Percocet] Adverse Reaction (Verified 11/06/18 07:42) Nausea Review of Systems All systems: reviewed and no additional remarkable complaints except as stated - All systems were reviewed and were negative except as noted above in the HPI Physical Exam Vital Signs: Temp Pulse Resp BP Pulse Ox 98.4 F 71 13 106/61 94 11/06/18 07:46 11/06/18 07:46 11/06/18 15:03 11/06/18 15:03 11/06/18 15:03 General appearance: PRESENT: no acute distress, cooperative, disheveled, obese, other - Sitting in the bed watching television, displaying no facial asymmetry with fluent speech, displaying a full series of gestures with the right upper extremity with fine motor skill with her right hand, use of the left upper extremity is limited by pain but she shows no signs of weakness proximally and has good plant scientist strength in the left hand, sitting upright in bed without any balancing aids and was crossing and uncrossing her feet without trouble during the examination will be talked Head exam: PRESENT: atraumatic, normocephalic Eye exam: PRESENT: EOMI, PERRLA. ABSENT: conjunctival injection, nystagmus, scleral icterus Ear exam: PRESENT: normal external ear exam Mouth exam: PRESENT: moist, neck supple Throat exam: ABSENT: post pharyngeal erythema Neck exam: PRESENT: full ROM. ABSENT: carotid bruit, JVD, lymphadenopathy, meningismus, tenderness, thyromegaly Respiratory exam: PRESENT: clear to auscultation ashlyn, symmetrical, unlabored. ABSENT: accessory muscle use, chest wall tenderness, crackles, prolonged expiratory phas, rhonchi, tachypnea, wheezes Cardiovascular exam: PRESENT: RRR, +S1, +S2. ABSENT: diastolic murmur, systolic murmur Pulses: PRESENT: normal carotid pulses Vascular exam: PRESENT: normal capillary refill GI/Abdominal exam: PRESENT: normal bowel sounds, soft. ABSENT: distended, guarding, rebound, tenderness Extremities exam: PRESENT: other - Left upper extremity is in a sling. ABSENT: clubbing, pedal edema Musculoskeletal exam: PRESENT: normal inspection. ABSENT: deformity Neurological exam: PRESENT: alert, awake, oriented to person, oriented to place, oriented to time, oriented to situation, CN II-XII grossly intact. ABSENT: motor sensory deficit Psychiatric exam: PRESENT: appropriate affect, normal mood Skin exam: PRESENT: dry, warm Results Laboratory Results: 11/06/18 09:25 11/06/18 09:25 11/06/18 11/06/18 11/06/18 09:25 09:25 09:25 WBC 7.7 RBC 3.99 Hgb 11.2 L Hct 33.7 L MCV 85 MCH 28.0 MCHC 33.1 RDW 15.3 H Plt Count 177 Seg Neutrophils % 75.8 Lymphocytes % 14.4 Monocytes % 8.2 Eosinophils % 1.3 Basophils % 0.3 Absolute Neutrophils 5.8 Absolute Lymphocytes 1.1 Absolute Monocytes 0.6 Absolute Eosinophils 0.1 Absolute Basophils 0.0 Sodium 142.4 Potassium 3.7 Chloride 111 H Carbon Dioxide 25 Anion Gap 6 BUN 10 Creatinine 0.78 Est GFR ( Amer) > 60 Est GFR (Non-Af Amer) > 60 Glucose 117 H Calcium 8.5 Total Bilirubin 0.4 AST 30 ALT 26 Alkaline Phosphatase 93 Total Protein 6.0 L Albumin 3.4 L Urine Color YELLOW Urine Appearance CLEAR Urine pH 7.0 Ur Specific [place] 1.015 Urine Protein NEGATIVE Urine Glucose (UA) NEGATIVE Urine Ketones NEGATIVE Urine Blood NEGATIVE Urine Nitrite NEGATIVE Ur Leukocyte Esterase TRACE H Urine WBC (Auto) 1 Urine RBC (Auto) 1 11/06/18 09:25 Troponin I < 0.012 Impressions: Chest X-Ray 11/06/18 09:09 IMPRESSION: Linear left lingular opacity, likely atelectasis. No other evidence of acute cardiopulmonary process. Forearm X-Ray 11/06/18 09:10 IMPRESSION: 1. Evidence of prior distal radius and ulnar fractures with evidence of interval healing. Distal radial plate and screw fixation hardware with persistent fracture line at the distal radius. Alignment is near anatomic. 2. Diffuse soft tissue swelling about the hand. Head CT 11/06/18 10:38 IMPRESSION: No evidence of large vascular territory infarct or intracranial hemorrhage. MRI would be more sensitive for evaluation of acute ischemic event. EVIDENCE OF ACUTE STROKE: NO. Assessment and Plan - Diagnosis (1) TIA (transient ischemic attack) Is this a current diagnosis for this admission?: Yes Plan: We are going to work her up for a TIA, including a repeat CT scan of the head because we cannot get an MRI, and a carotid Doppler ultrasound, along with an aspirin and a statin and evaluations by PT, OT, and ST. If these tests are negative, the most likely explanation is an interaction between her pain medications and her multiple numerous other sedating medications that she takes, including a large dose of trazodone at bedtime as well as Seroquel and Abilify. - Time Time Spent with patient: 55 minutes Time Spent with patient: 35 or more minutes
[2018-11-06] MEDS: METOPROLOL SUCCINATE 25 MG TAB.SR.24H PO SCH (21:54)
[2018-11-06] MEDS: HYDROCODONE/ACETAMINOPHEN 10-325 MG TABLET PO PRN (21:54)
[2018-11-06] MEDS: HEPARIN SOD (PORCINE) 5,000 UNIT/ML 1 ML SYRINGE SUBCUT SCH (21:55)
[2018-11-06] MEDS ORDERED: QUETIAPINE FUMARATE 25 MG TABLET PO SCH (22:00)
[2018-11-06] MEDS ORDERED: ATORVASTATIN CALCIUM 20 MG TABLET PO SCH (22:00)
[2018-11-06] MEDS ORDERED: (PENDING PHARMACY ID) (Quetiapine Fumarate [Seroquel] 50 MG) PO SCH (22:00)
[2018-11-06] MEDS ORDERED: TOPIRAMATE 100 MG TABLET PO SCH (22:00)
[2018-11-06] MEDS ORDERED: BIMATOPROST OP SCH (22:00)
[2018-11-06] MEDS ORDERED: LATANOPROST 0.005% OPH SOLN 2.5 ML OU SCH (22:00)
[2018-11-06] MEDS: CARBAMAZEPINE 100 MG TAB.CHEW PO SCH (22:09)
--- NOTE | 2018-11-06 22:13 | EKG REPORT ---
SEVERITY:- BORDERLINE ECG - SINUS RHYTHM BORDERLINE T ABNORMALITIES, ANTERIOR LEADS : Confirmed by: Kenyatta Rodriguez MD 06-Nov-2018 22:12:17
--- NOTE | 2018-11-06 23:04 | RADIOLOGY REPORT (SQ) ---
EXAM DESCRIPTION: US CAROTID DOPPLER BILATERAL COMPLETED DATE/TME: 11/06/2018 15:25 CLINICAL HISTORY: 63 years, Female, tia COMPARISON: None. TECHNIQUE: Transverse and longitudinal sonographic images of the cervical portions of the carotid arteries. Doppler and spectral analysis with color flow was also utilized LIMITATIONS: None. FINDINGS: Imaging over the carotids demonstrates mild visible atheromatous plaque formation associated with the common and internal carotid arteries bilaterally. No visible areas of severe stenosis. Normal antegrade flow in the vertebral arteries bilaterally. Doppler and spectral analysis with color flow shows primarily triphasic and occasional biphasic waveforms bilaterally. Velocities are as follows (in peak systolic velocity): Small right CCA: 99 cm/s. Distal right CCA: 64 cm/s. Proximal right ICA: 91 cm/s. Distal right ICA: 101 cm/s. ICA/CCA ratio right: 1.6. Right ECA: 110 cm/s. Right vertebral artery: 51 cm/s. Proximal left CCA: 136 cm/s. Distal left CCA: 74 cm/s. Proximal left ICA: 77 cm/s. Distal left ICA: 96 cm/s. Left ICA to CCA ratio: 1.3. Left ECA: 100 cm/s. Left vertebral artery: 51 cm/s. IMPRESSION: Mild visible atheromatous plaque formation bilaterally with no sonographic evidence for severe stenosis. Normal ICA to CCA ratios bilaterally. copyright 2010 [employer]- All Rights Reserved
[2018-11-07] MEDS: HYDROCODONE/ACETAMINOPHEN 10-325 MG TABLET PO PRN ×2 (03:50→09:12)
[2018-11-07] MEDS: HEPARIN SOD (PORCINE) 5,000 UNIT/ML 1 ML SYRINGE SUBCUT SCH (05:25)
[2018-11-07] MEDS ORDERED: LEVOTHYROXINE SODIUM 0.05 MG TABLET PO SCH (06:00)
[2018-11-07 06:06] LABS: CHOLESTEROL 132.58 mg/dL (0-200); TRIGLYCERIDES 127 mg/dL (<150)
[2018-11-07 06:16] LABS: DIRECT LDL 64 mg/dL (<100)
--- NOTE | 2018-11-07 06:39 | PDOC CONSULTATION ---
Consultation Consult Date: 11/07/18 Provider Consulted: JEWELS STOUT Consult reason:: Status post left distal radius revision ORIF History of Present Illness Admission Date/PCP: 11/06/18 14:13 ELVER SEYMOUR MD History of Present Illness: LOGAN LEMONS is a 63 year old female Patient is a 63-year-old white female status post revision open reduction internal fixation of a left distal radius fracture on November 05, 2018. Patient readmitted because of mental status changes and falls. Orthopedics is consulted to assess left upper extremity splint Past Medical History Cardiac Medical History: Reports: Hyperlipidema, Hypertension - PO MEDS Denies: Coronary Artery Disease, Myocardial Infarction Pulmonary Medical History: Reports: Chronic Obstructive Pulmonary Disease (COPD) Denies: Asthma, Bronchitis - HX. OF BRONCHITIS, Pneumonia Neurological Medical History: Denies: Seizures Endocrine Medical History: Reports: Hypothyroidism Musculoskeltal Medical History: Reports: Arthritis - ARTHRITIS IN BACK - ON PAIN MANAGEMENT Psychiatric Medical History: Reports: Attention Deficit Hyperactivity Disorder, Bipolar Disorder, Depression Hematology: Denies: Anemia Past Surgical History Past Surgical History: Reports: Cholecystectomy, Hysterectomy, Orthopedic Campos rgery - ORIF left distal radius fracture Social History Information Source: Patient, DrGabriel Hodges, [facility] Records Smoking Status: Unknown if Ever Smoked Frequency of Alcohol Use: None Hx Recreational Drug Use: Yes Drugs: Cocaine Hx Prescription Drug Abuse: No - Advance Directive Resuscitation Status: Full Code Family History Family History: Reviewed & Not Pertinent Parental Family History Reviewed: No Children Family History Reviewed: No Sibling(s) Family History Reviewed.: No Medication/Allergy Home Medications: Aripiprazole [Abilify 30 mg Tablet] 30 mg PO DAILY 06/04/12 Carbamazepine [Tegretol 100 mg Chewable Tablet] 100 mg PO BID 06/04/12 Levothyroxine Sodium [Synthroid 0.025 mg Tablet] 50 mcg PO DAILY 06/04/12 Trazodone HCl [Desyrel] 250 mg PO QHS PRN 06/04/12 Baclofen [Baclofen 10 mg Tablet] 10 mg PO TID 05/06/18 Bimatoprost [Lumigan 0.01% Oph Soln 2.5 ml/Bottle] 2 drop OP QHS 05/06/18 Celecoxib [Celebrex] 200 mg PO DAILY 05/06/18 Dexlansoprazole [Dexilant 60 mg Capsule] 60 mg PO DAILY 05/06/18 Gabapentin [Neurontin 300 mg Capsule] 300 mg PO TID 05/06/18 Isosorbide Mononitrate [Imdur 30 mg Tablet.er] 30 mg PO QHS 05/06/18 Metoprolol Succinate [Toprol Xl] 25 mg PO BID 05/06/18 Quetiapine Fumarate [Seroquel] 50 mg PO QHS 05/06/18 Simvastatin 40 mg PO QHS 05/06/18 Topiramate [Topamax] 100 mg PO QHS 05/06/18 Venlafaxine HCl [Effexor Xr] 150 mg PO DAILY 05/06/18 Bupropion HCl [Wellbutrin Xl 300mg 24hr Tablet] 300 mg PO DAILY 10/15/18 Dextroamphetamine/Amphetamine [Adderall 30 mg Tablet] 30 mg PO DAILY 10/15/18 Meloxicam [Mobic] 7.5 mg PO BID 10/15/18 Hydrocodone Bit/Acetaminophen [Hydrocodon-Acetaminophn 10-325] 1 tab PO QID PRN #22 tablet 11/05/18 Dextroamphetamine/Amphetamine [Adderall 10 mg Tablet] 10 mg PO DAILY 11/06/18 Allergies/Adverse Reactions: oxycodone [From Percocet] Allergy (Verified 11/06/18 19:44) Nausea Review of Systems All systems: as per PMH Physical Exam Vital Signs: Temp Pulse Resp BP Pulse Ox 36.9 C 64 20 133/65 H 94 11/07/18 03:53 11/07/18 04:00 11/07/18 04:00 11/07/18 04:00 11/07/18 04:00 Intake & Output 11/05/18 11/06/18 11/07/18 06:59 06:59 06:59 Intake Total 590 Output Total 150 Balance 440 Weight 84.1 kg Physical Exam: Overweight middle-aged white female sitting in bed somewhat somnolent. Patient complaining of pain in the distal left upper extremity. General appearance: PRESENT: mild distress, well-developed, well-nourished Respiratory exam: PRESENT: unlabored Cardiovascular exam: PRESENT: RRR Vascular exam: PRESENT: normal capillary refill Extremities exam: PRESENT: other - Left upper extremity splint and shoulder immobilizer in place. Moderate swelling of the index through small digits. Questionable sensory deficit over the dorsum of the thumb. Dense examination of the median nerve distribution is intact. There is brisk capillary refill in each of the digits. Neurological exam: PRESENT: alert, awake, oriented to person, oriented to place, oriented to time, oriented to situation. ABSENT: motor sensory deficit Psychiatric exam: PRESENT: appropriate affect, normal mood. ABSENT: homicidal ideation, suicidal ideation Skin exam: PRESENT: dry, intact, warm. ABSENT: cyanosis, rash Results Laboratory Results: 11/06/18 09:25 11/06/18 09:25 11/06/18 11/06/18 11/06/18 09:25 09:25 09:25 WBC 7.7 RBC 3.99 Hgb 11.2 L Hct 33.7 L MCV 85 MCH 28.0 MCHC 33.1 RDW 15.3 H Plt Count 177 Seg Neutrophils % 75.8 Lymphocytes % 14.4 Monocytes % 8.2 Eosinophils % 1.3 Basophils % 0.3 Absolute Neutrophils 5.8 Absolute Lymphocytes 1.1 Absolute Monocytes 0.6 Absolute Eosinophils 0.1 Absolute Basophils 0.0 Sodium 142.4 Potassium 3.7 Chloride 111 H Carbon Dioxide 25 Anion Gap 6 BUN 10 Creatinine 0.78 Est GFR ( Amer) > 60 Est GFR (Non-Af Amer) > 60 Glucose 117 H Calcium 8.5 Total Bilirubin 0.4 AST 30 ALT 26 Alkaline Phosphatase 93 Total Protein 6.0 L Albumin 3.4 L Triglycerides Cholesterol LDL Cholesterol Direct VLDL Cholesterol HDL Cholesterol Urine Color YELLOW Urine Appearance CLEAR Urine pH 7.0 Ur Specific [place] 1.015 Urine Protein NEGATIVE Urine Glucose (UA) NEGATIVE Urine Ketones NEGATIVE Urine Blood NEGATIVE Urine Nitrite NEGATIVE Ur Leukocyte Esterase TRACE H Urine WBC (Auto) 1 Urine RBC (Auto) 1 11/07/18 05:30 WBC RBC Hgb Hct MCV MCH MCHC RDW Plt Count Seg Neutrophils % Lymphocytes % Monocytes % Eosinophils % Basophils % Absolute Neutrophils Absolute Lymphocytes Absolute Monocytes Absolute Eosinophils Absolute Basophils Sodium Potassium Chloride Carbon Dioxide Anion Gap BUN Creatinine Est GFR ( Amer) Est GFR (Non-Af Amer) Glucose Calcium Total Bilirubin AST ALT Alkaline Phosphatase Total Protein Albumin Triglycerides 127 Cholesterol 132.58 LDL Cholesterol Direct 64 VLDL Cholesterol 25.0 HDL Cholesterol 48 Urine Color Urine Appearance Urine pH Ur Specific [place] Urine Protein Urine Glucose (UA) Urine Ketones Urine Blood Urine Nitrite Ur Leukocyte Esterase Urine WBC (Auto) Urine RBC (Auto) 11/06/18 09:25 Troponin I < 0.012 Impressions: Chest X-Ray 11/06/18 09:09 IMPRESSION: Linear left lingular opacity, likely atelectasis. No other evide nce of acute cardiopulmonary process. Forearm X-Ray 11/06/18 09:10 IMPRESSION: 1. Evidence of prior distal radius and ulnar fractures with evidence of interval healing. Distal radial plate and screw fixation hardware with persistent fracture line at the distal radius. Alignment is near anatomic. 2. Diffuse soft tissue swelling about the hand. Head CT 11/06/18 10:38 IMPRESSION: No evidence of large vascular territory infarct or intracranial hemorrhage. MRI would be more sensitive for evaluation of acute ischemic event. EVIDENCE OF ACUTE STROKE: NO. Carotid Doppler Study 11/06/18 15:25 IMPRESSION: Mild visible atheromatous plaque formation bilaterally with no sonographic evidence for severe stenosis. Normal ICA to CCA ratios bilaterally. copyright 2011 [employer]- All Rights Reserved Status: Imported from PACS Assessment & Plan - Diagnosis (1) Fracture of left distal radius Qualifiers: Encounter type: subsequent encounter Fracture type: closed Fracture healing: with nonunion Is this a current diagnosis for this admission?: Yes Plan: 63-year-old status post revision ORIF of the left distal radius fracture. At this point I think the patient's neurologic function is intact, the splint is working appropriately, there is no evidence of drainage from the wound. There is modest swelling in the digits and I think elevation on 2 pillows should help decrease some of this. Follow-up with Dr. kwon as previously scheduled. - Time Time Spent: 50 to 70 Minutes Anticipated discharge: Other Within: Other
[2018-11-07] MEDS: CARBAMAZEPINE 100 MG TAB.CHEW PO SCH (09:12)
[2018-11-07] MEDS: METOPROLOL SUCCINATE 25 MG TAB.SR.24H PO SCH (09:14)
[2018-11-07] MEDS ORDERED: PANTOPRAZOLE SODIUM 40 MG TABLET.DR PO SCH (10:00)
[2018-11-07] MEDS ORDERED: VENLAFAXINE HCL 75 MG CAP.SR.24H PO SCH (10:00)
[2018-11-07] MEDS ORDERED: CELECOXIB 200 MG CAPSULE PO SCH (10:00)
[2018-11-07] MEDS ORDERED: ARIPIPRAZOLE 5 MG TABLET PO SCH (10:00)
[2018-11-07] MEDS ORDERED: ASPIRIN 81 MG TABLET, ENT COATED PO SCH (10:00)
--- NOTE | 2018-11-07 10:53 | RADIOLOGY REPORT (SQ) ---
EXAM DESCRIPTION: CT HEAD WITHOUT COMPLETED DATE/TIME: 11/07/2018 10:41 am REASON FOR STUDY: tia G45.9 TRANSIENT CEREBRAL ISCHEMIC ATTACK, UNSPECIFIED COMPARISON: CT brain 11/06/2018, 05/05/2018 Carotid Doppler 11/06/2018 TECHNIQUE: Axial images acquired through the brain without intravenous contrast. Images reviewed wi th bone, brain and subdural windows. Additional sagittal and coronal reconstructions were generated. Images stored on PACS. All CT scanners at this facility use dose modulation, iterative reconstruction, and/or weight based d osing when appropriate to reduce radiation dose to as low as reasonably achievable (ALARA). [facility]: Dose Right [facility]: CareDose [facility]: Dose Right [facility]: Teradose 4D [facility]: [employer] RADIATION DOSE: CT Rad equipment meets quality standard of care and radiation dose reduction techniq ues were employed. CTDIvol: 48.5 mGy. DLP: 855 mGy-cm. mGy. LIMITATIONS: None. FINDINGS: VENTRICLES: Normal size and contour. CEREBRUM: No masses. No hemorrhage. No midline shift. No evidence for acute infarction. Normal gra y/white matter differentiation. No areas of low density in the white matter. CEREBELLUM: No masses. No hemorrhage. No alteration of density. No evidence for acute infarction. EXTRAAXIAL SPACES: No fluid collections. No masses. ORBITS AND GLOBE: No intra- or extraconal masses. Normal contour of globe without masses. CALVARIUM: No fracture. PARANASAL SINUSES: No fluid or mucosal thickening. SOFT TISSUES: No mass or hematoma. OTHER: No other significant finding. IMPRESSION: NORMAL BRAIN CT WITHOUT CONTRAST. EVIDENCE OF ACUTE STROKE: NO. COMMENT: Quality ID # [id number]: Final reports with documentation of one or more dose reduction techniques (e.g., Automated exposure control, adjustment of the mA and/or kV according to patient size, use of iterative reconstruction technique) TECHNICAL DOCUMENTATION: JOB ID: [id number] [employer]- All Rights Reserved Reading location - IP/workstation name: [email or web address]
[2018-11-07 17:04] VITALS: BP 98/58
--- NOTE | 2018-11-07 17:54 | PDOC DISCHARGE SUMMARY ---
General - Admit/Disc Date/PCP Admission Date/Primary Care Provider: 11/06/18 14:13 ELVER SEYMOUR MD Discharge Date: 11/07/18 - Discharge Diagnosis (1) TIA (transient ischemic attack) Is this a current diagnosis for this admission?: Yes Summary: Ruled out. More than likely what she had was a interaction between her pain medication and the numerous other sedating medication she takes. - Additional Information Resuscitation Status: Full Code Discharge Diet: Cardiac Discharge Activity: Activity As Tolerated, Other Home Medications: Aripiprazole [Abilify 30 mg Tablet] 30 mg PO DAILY 06/04/12 Carbamazepine [Tegretol 100 mg Chewable Tablet] 100 mg PO BID 06/04/12 Levothyroxine Sodium [Synthroid 0.025 mg Tablet] 50 mcg PO DAILY 06/04/12 Trazodone HCl [Desyrel] 250 mg PO QHS PRN 06/04/12 Baclofen [Baclofen 10 mg Tablet] 10 mg PO TID 05/06/18 Bimatoprost [Lumigan 0.01% Oph Soln 2.5 ml/Bottle] 2 drop OP QHS 05/06/18 Celecoxib [Celebrex] 200 mg PO DAILY 05/06/18 Dexlansoprazole [Dexilant 60 mg Capsule] 60 mg PO DAILY 05/06/18 Gabapentin [Neurontin 300 mg Capsule] 300 mg PO TID 05/06/18 Isosorbide Mononitrate [Imdur 30 mg Tablet.er] 30 mg PO QHS 05/06/18 Metoprolol Succinate [Toprol Xl] 25 mg PO BID 05/06/18 Quetiapine Fumarate [Seroquel] 50 mg PO QHS 05/06/18 Simvastatin 40 mg PO QHS 05/06/18 Topiramate [Topamax] 100 mg PO QHS 05/06/18 Venlafaxine HCl [Effexor Xr] 150 mg PO DAILY 05/06/18 Bupropion HCl [Wellbutrin Xl 300mg 24hr Tablet] 300 mg PO DAILY 10/15/18 Dextroamphetamine/Amphetamine [Adderall 30 mg Tablet] 60 mg PO DAILY 10/15/18 Hydrocodone Bit/Acetaminophen [Hydrocodon-Acetaminophn 10-325] 1 tab PO QID PRN #22 tablet 11/05/18 Dextroamphetamine/Amphetamine [Adderall 10 mg Tablet] 10 mg PO DAILY 11/06/18 Aspirin [Ecotrin 81 mg EC Tablet] 81 mg PO DAILY tabec 11/07/18 History of Present Illness History of Present Illness: LOGAN LEMONS is a 63 year old female on multiple sedating psychiatric medications who had a surgical repair of her fractured bone in her left arm yesterday. Apparently she tolerated the procedure well and went home afterwards to recuperate. She took her evening meds including her sleeping medications and her pain medicine. When she got up this morning she went to get up off the couch she felt weak and wobbly and her legs went out from under her. She was able to get up under her own power and she walked into the kitchen where apparently it happened again. She did not hit her head or lose consciousness. She does not have any slurred speech or other focal neurological deficit. Her blood pressures are well within the normal range. Her vital signs are stable. She has not had any trouble chewing or swallowing or speaking. She said nothing like this is ever happened before. She is asymptomatic now. Her labs were unremarkable. Her head CT was unremarkable. MRI was not done because she just had hardware placed on her arm yesterday. She is being admitted for observation. Hospital Course Hospital Course: She had no further incidents. We held some of her sedating medications. Repeat head CT was unremarkable. She can resume her home medications, but she was cautioned that taking them with her pain medication could result in another episode like she had yesterday. She verbalized her understanding. Her labs and examination were reassuring and she was discharged home in good condition. Physical Exam Vital Signs: Temp Pulse Resp BP Pulse Ox 98.6 F 60 16 126/63 H 92 11/07/18 16:36 11/07/18 16:36 11/07/18 16:36 11/07/18 16:36 11/07/18 16:36 Intake & Output 11/06/18 11/07/18 11/08/18 06:59 06:59 06:59 Intake Total 590 Output Total 150 Balance 440 Weight 84.1 kg General appearance: PRESENT: no acute distress, cooperative, disheveled, obese Respiratory exam: PRESENT: clear to auscultation ashlyn, symmetrical, unlabored. ABSENT: accessory muscle use, chest wall tenderness, crackles, prolonged expiratory phas, rhonchi, tachypnea, wheezes Cardiovascular exam: PRESENT: RRR, +S1, +S2. ABSENT: diastolic murmur, systolic murmur Pulses: PRESENT: normal carotid pulses Vascular exam: PRESENT: normal capillary refill GI/Abdominal exam: PRESENT: normal bowel sounds, soft. ABSENT: distended, guarding, rebound, tenderness Extremities exam: PRESENT: other - Left upper extremity is in a sling. ABSENT: clubbing, pedal edema Musculoskeletal exam: PRESENT: normal inspection. ABSENT: deformity Neurological exam: PRESENT: alert, awake, oriented to person, oriented to place, oriented to time, oriented to situation, CN II-XII grossly intact. ABSENT: motor sensory deficit Psychiatric exam: PRESENT: appropriate affect, normal mood Skin exam: PRESENT: dry, warm Results Laboratory Results: 11/06/18 09:25 11/06/18 09:25 11/07/18 05:30 Triglycerides 127 Cholesterol 132.58 LDL Cholesterol Direct 64 VLDL Cholesterol 25.0 HDL Cholesterol 48 11/06/18 09:25 Troponin I < 0.012 Impressions: Chest X-Ray 11/06/18 09:09 IMPRESSION: Linear left lingular opacity, likely atelectasis. No other evidence of acute cardiopulmonary process. Forearm X-Ray 11/06/18 09:10 IMPRESSION: 1. Evidence of prior distal radius and ulnar fractures with evidence of interval healing. Distal radial plate and screw fixation hardware with persistent fracture line at the distal radius. Alignment is near anatomic. 2. Diffuse soft tissue swelling about the hand. Carotid Doppler Study 11/06/18 15:25 IMPRESSION: Mild visible atheromatous plaque formation bilaterally with no sonographic evidence for severe stenosis. Normal ICA to CCA ratios bilaterally. copyright 2011 [employer]- All Rights Reserved Head CT 11/07/18 10:30 IMPRESSION: NORMAL BRAIN CT WITHOUT CONTRAST. EVIDENCE OF ACUTE STROKE: NO. Qualifiers - * PATIENT BEING DISCHARGED WITH ANY OF THE FOLLOWING DIAGNOSIS: No Acute Heart Failure Is this a Heart Failure Patient?: No Plan Time Spent: Greater than 30 Minutes
== END 2018-11-07 17:05 | disposition home health service (06) ==
LOC: ER 07:40 → EH 14:13 → 3S 15:55
PROVIDERS: ADMIT Family Medicine; ATTEND Family Medicine
DX: Z03.89 Encounter for observation for other suspected diseases and conditions ruled out (principal); R53.1 Weakness; R26.81 Unsteadiness on feet; S52.502K Unspecified fracture of the lower end of left radius, subsequent encounter for closed fracture with nonunion; X58.XXXD Exposure to other specified factors, subsequent encounter; E66.9 Obesity, unspecified; I10 Essential (primary) hypertension; M13.88 Other specified arthritis, other site; R47.81 Slurred speech; R20.0 Anesthesia of skin; M25.529 Pain in unspecified elbow; W19.XXXA Unspecified fall, initial encounter; J44.9 Chronic obstructive pulmonary disease, unspecified; F90.9 Attention-deficit hyperactivity disorder, unspecified type; G89.29 Other chronic pain; R47.01 Aphasia; R29.818 Other symptoms and signs involving the nervous system; E03.9 Hypothyroidism, unspecified; E78.5 Hyperlipidemia, unspecified; Z79.899 Other long term (current) drug therapy; Z79.82 Long term (current) use of aspirin; Z90.49 Acquired absence of other specified parts of digestive tract; Z96.7 Presence of other bone and tendon implants
CPT/HCPCS: 93005; 99285; 36415 ×2; 87086; 85025; 85610; 85730; 80053; 81001; 84484; 80061; 93880; 71045; 73090; 70450 ×2; 93010; 97530; 97116; 97162; 97535; 97166; G0378 ×2; A9270 ×14; J3490 ×4

== ENCOUNTER 2018-11-22 17:34 | Emergency (ER) | payer MEDICARE, MEDICAID ==
--- NOTE | 2018-11-22 18:14 | ER Document Report ---
ED Medical Screen (RME) - General Chief Complaint: Arm Pain Stated Complaint: ARM PAIN Time Seen by Provider: 11/22/18 18:09 Primary Care Provider: ELVER SEYMOUR MD [Primary Care Provider] - Follow up as needed Mode of Arrival: Ambulatory Information source: Patient Notes: Patient is a 63-year-old female who presents to the ER today for possible abscess to the left AC. Patient was seen by [facility] internal medicine for arm pain after 2 surgeries for broken left arm that occurred when she fell over her dogs in April, patient saw this provider for continued left arm pain, in a cast currently, they did an ultrasound to rule out blood clot today and she was called and told that it showed a possible abscess to the left AC area and that this was "very dangerous" and to go to the emergency department immediately. Patient denies any fevers, states that the area does hurt but the hand is actually much worse pain ruiz. She admits to some numbness and tingling to the hand. Dr. waite has been the surgeon for hand surgeries. TRAVEL OUTSIDE OF THE [place] IN LAST 30 DAYS: No - Related Data Allergies/Adverse Reactions: oxycodone [From Percocet] Allergy (Verified 11/06/18 19:44) Nausea Past Medical History - General Information source: Patient - Past Medical History Cardiac Medical History: Reports: Hx Hypercholesterolemia, Hx Hypertension - PO MEDS Denies: Hx Coronary Artery Disease, Hx Heart Attack Pulmonary Medical History: Reports: Hx COPD Denies: Hx Asthma, Hx Bronchitis - HX. OF BRONCHITIS, Hx Pneumonia Neurological Medical History: Denies: Hx Cerebrovascular Accident, Hx Seizures Endocrine Medical History: Reports: Hx Hypothyroidism Renal/ Medical History: Denies: Hx Peritoneal Dialysis Musculoskeltal Medical History: Reports Hx Arthritis - ARTHRITIS IN BACK - ON PAIN MANAGEMENT, Reports Hx Musculoskeletal Deformity Psychiatric Medical History: Reports: Hx Anxiety, Hx Attention Deficit Hyperactivity Disorder, Hx Bipolar Disorder, Hx Depression, Hx Schizophrenia Past Surgical History: Reports: Hx Cholecystectomy, Hx Hysterectomy, Hx Orthopedic Surgery - ORIF left distal radius fracture - Immunizations Immunizations up to date: Yes Hx Diphtheria, Pertussis, Tetanus Vaccination: Yes - 05/04/2018 IN THE ER History of Influenza Vaccine for 03/2017 - 08/2017 Season: Yes Influenza Administration Date for 03/2017 - 08/2017 Season: 10/18/18 Review of Systems - Review of Systems Musculoskeletal: See HPI Skin: See HPI Physical Exam - Vital signs Vitals: Temp Pulse Resp BP Pulse Ox 98.2 F 62 16 152/81 H 98 11/22/18 17:40 11/22/18 17:40 11/22/18 17:40 11/22/18 17:40 11/22/18 17:40 - Notes Notes: PHYSICAL EXAMINATION: GENERAL: Well-appearing and in no acute distress. EXTREMITIES: Left arm in cast, small mass and tenderness to the left AC without erythema or warmth, no induration or fluctuance Course - Vital Signs Vital signs: Temp Pulse Resp BP Pulse Ox 98.2 F 62 16 152/81 H 98 11/22/18 17:40 11/22/18 17:40 11/22/18 17:40 11/22/18 17:40 11/22/18 17:40 Doctor's Discharge - Discharge Referrals: ELVER SEYMOUR MD [Primary Care Provider] - Follow up as needed
[2018-11-22 19:19] LABS: ABSOLUTE EOSINOPHILS # (AUTO) 0.2 10^3/uL (0.0-0.6); ABSOLUTE LYMPHOCYTES (AUTO) 1.4 10^3/uL (0.5-4.7); ABSOLUTE MONOCYTES (AUTO) 0.4 10^3/uL (0.1-1.4); ABSOLUTE NEUT (AUTO) 3.1 10^3/uL (1.7-8.2); BASOPHILS % (AUTO) 0.5 % (0-2); EOSINOPHILS % (AUTO) 3.2 % (0-6); HEMATOCRIT 36.2 % (36.0-47.0); HEMOGLOBIN 11.8 g/dL (12.0-15.5); LYMPHOCYTES % (AUTO) 27.6 % (13-45); MEAN CORPUSCULAR HEMOGLOBIN 27.6 pg (27.0-33.4); MEAN CORPUSCULAR HGB CONC 32.7 g/dL (32.0-36.0); MEAN CORPUSCULAR VOLUME 84 fl (80-97); MONOCYTES % (AUTO) 7.8 % (3-13); PLATELET COUNT 271 10^3/uL (150-450); RED BLOOD COUNT 4.29 10^6/uL (3.72-5.28); RED CELL DISTRIBUTION WIDTH 14.6 % (11.5-14.0); SEGMENTED NEUTROPHILS % (AUTO) 60.9 % (42-78); TOTAL CELLS COUNTED % (AUTO) 100 %; WHITE BLOOD COUNT 5.1 10^3/uL (4.0-10.5)
[2018-11-22 19:35] LABS: ANION GAP 7 (5-19); BLOOD UREA NITROGEN 17 mg/dL (7-20); CALCIUM 9.5 mg/dL (8.4-10.2); CARBON DIOXIDE 28 mmol/L (22-30); CHLORIDE 107 mmol/L (98-107); GLUCOSE 77 mg/dL (75-110); POTASSIUM 4.2 mmol/L (3.6-5.0); SODIUM 142.1 mmol/L (137-145)
[2018-11-22] MEDS ORDERED: LIDOCAINE 1% INJ-PF (10 MG/ML) 30 ML SDV ONE (20:12)
[2018-11-22] MEDS ORDERED: CLINDAMYCIN HCL 150 MG CAPSULE PO ONE (20:35)
--- NOTE | 2018-11-22 20:46 | ER Document Report ---
ED General - General Chief Complaint: Arm Pain Stated Complaint: ARM PAIN Time Seen by Provider: 11/22/18 18:09 Primary Care Provider: ELVER SEYMOUR MD [Primary Care Provider] - Follow up as needed Mode of Arrival: Ambulatory Notes: Patient is a 63-year-old female with a history of a left both bone forearm fracture status post fixation with complication and postoperative. Who presents with 1 week of swelling to the left antecubital fossa. The patient also complains of a burning, stinging, constant discomfort to her hand. Describes the pain as being moderate to severe in intensity. Nothing seems to improve or worsen the pain. Pain and swelling has been present for at least 1 week, ultrasound completed by primary care provider. Does follow with Dr. Garrett for this issue. Nothing is otherwise new or different regarding her visit today other than that she was instructed to come to the emergency department by her primary care physician. TRAVEL OUTSIDE OF THE [place] IN LAST 30 DAYS: No - Related Data Allergies/Adverse Reactions: oxycodone [From Percocet] Allergy (Verified 11/06/18 19:44) Nausea Past Medical History - General Information source: Patient - Social History Smoking Status: Never Smoker Chew tobacco use (# tins/day): No Frequency of alcohol use: None Drug Abuse: None Lives with: Family Family History: Reviewed & Not Pertinent Patient has suicidal ideation: No Patient has homicidal ideation: No - Past Medical History Cardiac Medical History: Reports: Hx Hypercholesterolemia, Hx Hypertension - PO MEDS Denies: Hx Coronary Artery Disease, Hx Heart Attack Pulmonary Medical History: Reports: Hx COPD Denies: Hx Asthma, Hx Bronchitis - HX. OF BRONCHITIS, Hx Pneumonia Neurological Medical History: Denies: Hx Cerebrovascular Accident, Hx Seizures Endocrine Medical History: Reports: Hx Hypothyroidism Renal/ Medical History: Denies: Hx Peritoneal Dialysis Musculoskeletal Medical History: Reports Hx Arthritis - ARTHRITIS IN BACK - ON PAIN MANAGEMENT, Reports Hx Musculoskeletal Deformity Psychiatric Medical History: Reports: Hx Anxiety, Hx Attention Deficit Hyperactivity Disorder, Hx Bipolar Disorder, Hx Depression, Hx Schizophrenia Past Surgical History: Reports: Hx Cholecystectomy, Hx Hysterectomy, Hx Orthopedic Surgery - ORIF left distal radius fracture - Immunizations Immunizations up to date: Yes Hx Diphtheria, Pertussis, Tetanus Vaccination: Yes - 05/04/2018 IN THE ER Review of Systems - Review of Systems Notes: Constitutional: Negative for fever. HENT: Negative for sore throat. Eyes: Negative for visual changes. Cardiovascular: Negative for chest pain. Respiratory: Negative for shortness of breath. Gastrointestinal: Negative for abdominal pain, vomiting or diarrhea. Genitourinary: Negative for dysuria. Musculoskeletal: Negative for back pain. Skin: Positive for swelling to the left antecubital fossa Neurological: Negative for headaches, weakness or numbness. 10 point ROS negative except as marked above and in HPI. Physical Exam - Vital signs Vitals: Temp Pulse Resp BP Pulse Ox 98.2 F 62 16 152/81 H 98 11/22/18 17:40 11/22/18 17:40 11/22/18 17:40 11/22/18 17:40 11/22/18 17:40 Notes: PHYSICAL EXAMINATION: GENERAL: Well-appearing, well-nourished and in no acute distress. HEAD: Atraumatic, normocephalic. EYES: Pupils equal round and reactive to light, extraocular movements intact, sclera anicteric, conjunctiva are normal. ENT: nares patent, oropharynx clear without exudates. Moist mucous membranes. NECK: Normal range of motion, supple without lymphadenopathy LUNGS: Breath sounds clear to auscultation bilaterally and equal. No wheezes rales or rhonchi. HEART: Regular rate and rhythm without murmurs, capillary refill is less than 1 second in all digits of the left hand ABDOMEN: Soft, nontender, normoactive bowel sounds. No guarding, no rebound. No masses appreciated. EXTREMITIES: no pitting or edema. No cyanosis. NEUROLOGICAL: No focal neurological deficits. Moves all extremities spontaneously and on command. PSYCH: Normal mood, normal affect. SKIN: Warm, Dry, normal turgor, there is a mobile, firm area to the ulnar aspect of the left antecubital fossa without starting erythema, induration or fluctuance Course - Re-evaluation Re-evalutation: 11/22/18 20:43 Patient presents with complaints of an area of swelling over her left antecubital fossa that is been present for the past 1 week as well as pain in her left hand. Patient sustained a distal both bone forearm fracture in April and had a complicated postoperative course. Ultrasound was completed by primary care provider due to concern of possible DVT. Ultrasound did not demonstrate any evidence of a DVT although did demonstrate a possible phlegmon versus developing abscess in the area. Bedside ultrasound does show a small fluid collection in the mid to ulnar antecubital fossa. However clinically this does not fit an abscess. The area is clearly delineated, there is no erythema, fluctuance, or induration to the area. It is also not painful unless you press directly on it. I did anesthetize the area and under sterile conditions introduced an 18-gauge needle into the most central portion of the mass under ultrasound guidance. This did reveal only a small amount of bloody, slightly purulent expression. The exact diagnosis is uncertain but could be a thrombophlebitis versus reactive lymph node although this is an unusual location for a lymph node. I did discuss this case with the orthopedic surgeon on-call Dr. Stout, advised the uncertainty of diagnosis and he will see the patient in the office on Sunday. Labs otherwise unremarkable, vitals unremarkable. Her distal neurologic exam is acceptable with RMU sensory distribution completely intact. Motor testing limited secondary to immobilization. Capillary refill less than 1 second in all digits. Patient has been started on clindamycin for coverage of possible thrombus phlebitis versus developing abscess. - Vital Signs Vital signs: Temp Pulse Resp BP Pulse Ox 98.2 F 62 16 152/81 H 98 11/22/18 17:40 11/22/18 17:40 11/22/18 17:40 11/22/18 17:40 11/22/18 17:40 - Laboratory Result Diagrams: 11/22/18 18:40 11/22/18 18:40 Laboratory results interpreted by me: 11/22/18 11/22/18 18:40 18:40 Hgb 11.8 L RDW 14.6 H Est GFR (Non-Af Amer) 55 L Procedures - Incision and Drainage Left Arm Type: Simple Anesthetic type: 1% Lidocaine mL's of anesthetic: 1 I&D procedure: Chlorprep applied Incision Method: Incision made with needle Amount/type of drainage: 1 cc, bloody drainage Discharge - Discharge Clinical Impression: Antecubital fossa swelling, Thrombophlebitis Condition: Good Disposition: HOME, SELF-CARE Additional Instructions: The exact cause of the area of swelling is uncertain but does not appear to be an abscess. We did place a needle into the area and it appears to be possibly an infection of your vein over that area. Please apply warm compresses to the area 20 minutes every 2 hours while awake. Take the antibiotics as prescribed. I have discussed your case with Dr. Stout the orthopedic surgeon on-call who would like to see you in his office Sunday at 8 AM. Please follow-up closely as directed. Return to the emergency department immediately if you develop a fever, worsening pain to the area, increasing size of the mass, or any other symptoms that are worrisome to you. Prescriptions: Clindamycin HCl 300 mg PO TID #30 capsule Referrals: ELVER SEYMOUR MD [Primary Care Provider] - Follow up as needed JEWELS STOUT MD [ACTIVE STAFF] - 11/26/18 8:00 am
[2018-11-22 21:37] VITALS: BP 138/66
== END 2018-11-22 21:37 | disposition home or self-care (01) ==
LOC: ER 17:34
DX: M79.89 Other specified soft tissue disorders (principal); I80.9 Phlebitis and thrombophlebitis of unspecified site; M79.642 Pain in left hand; Z98.890 Other specified postprocedural states; I10 Essential (primary) hypertension; J44.9 Chronic obstructive pulmonary disease, unspecified; Z88.5 Allergy status to narcotic agent
CPT/HCPCS: 99283; 36415; 85025; 80048; 10060; A9270

== ENCOUNTER 2018-12-18 18:03 | Emergency (ER) | payer MEDICARE, MEDICAID ==
[2018-12-18 18:16] VITALS: BP 128/62
--- NOTE | 2018-12-18 19:08 | RADIOLOGY REPORT (SQ) ---
EXAM DESCRIPTION: FOREARM LEFT COMPLETED DATE/TIME: 12/18/2018 6:57 pm REASON FOR STUDY: fall pain COMPARISON: None. NUMBER OF VIEWS: Two views. TECHNIQUE: Two radiographic images acquired of the left forearm, including elbow and wrist in at ambar st one projection. LIMITATIONS: None. FINDINGS: MINERALIZATION: Osteopenia. BONES: Fracture of the olecranon with about 1 shaft width separation of the fragments. Old fractures of the distal radius and ulna status post plate screw fixation distal radius. SOFT TISSUES: No foreign body. OTHER: No other significant finding. IMPRESSION: Fracture of the olecranon. TECHNICAL DOCUMENTATION: JOB ID: [id number] [employer]- All Rights Reserved Reading location - IP/workstation name: [email or web address]
--- NOTE | 2018-12-18 19:09 | RADIOLOGY REPORT (SQ) ---
EXAM DESCRIPTION: RIBS LEFT W/PA CHEST COMPLETED DATE/TIME: 12/18/2018 6:57 pm REASON FOR STUDY: fall pain COMPARISON: 11/06/2018 TECHNIQUE: Frontal view of the chest and additional views of the left ribs acquired. NUMBER OF VIEWS: Three view. LIMITATIONS: None. FINDINGS: FRONTAL CXR: No pneumothorax. No pleural effusion. No atelectasis or infiltrates. RIBS: No displaced rib fractures. No lytic or blastic bony lesions. OTHER: No other significant finding. IMPRESSION: NO PNEUMOTHORAX. NO DISPLACED RIB FRACTURES. COMMENT: SITE OF TRAUMA/COMPLAINT MARKED/STAMP COMPLETED: NO. TECHNICAL DOCUMENTATION: JOB ID: [id number] [employer]- All Rights Reserved Reading location - IP/workstation name: [email or web address]
[2018-12-18] MEDS ORDERED: MORPHINE SULFATE 10 MG/ML INJ IV ONE (19:10)
[2018-12-18] MEDS ORDERED: ONDANSETRON 4 MG TAB.RAPDIS PO ONE (19:11)
--- NOTE | 2018-12-18 19:16 | ER Document Report ---
ED Extremity Problem, Upper - General Chief Complaint: Arm Pain Stated Complaint: FALL Time Seen by Provider: 12/18/18 18:31 Primary Care Provider: ELVER SEYMOUR MD [Primary Care Provider] - Follow up as needed PRIYA DAVISON DO [ACTIVE STAFF] - Follow up tomorrow Mode of Arrival: Wheelchair Information source: Patient Notes: 63-year-old female presents to ED for complaint of left arm pain after stepping in a hole at his sister's house today. She states she fell forward landing on her arm and her left breast. She states she broke this arm posterior to the wrist in April and has had 3 surgeries the last one 3 weeks ago. She states she had her Aircast on as she was supposed to when she fell. She states the pain is a 5 out of 5. She states she took her Vicodin 03/13/2025 this morning but has not had one since then. She states she is allergic to Percocet. Patient is alert oriented respirations regular and unlabored speaking in full sentences. Her arm and ribs have been x-rayed. The arm is broken at the elbow at this time. TRAVEL OUTSIDE OF THE [place] IN LAST 30 DAYS: No - HPI Patient complains to provider of: Elbow - Left Onset: This afternoon Recent injury: Yes Where: Outdoors, Other - Sister's house Quality of pain: Sharp, Throbbing Severity of pain: Severe Pain Level: 5 Context: Fall Associated symptoms: Other - Left rib pain, left elbow pain Exacerbated by: Movement, Exertion Relieved by: Rest, Positioning Similar symptoms previously: Yes Recently seen / treated by doctor: Yes - Related Data Allergies/Adverse Reactions: oxycodone [From Percocet] Allergy (Verified 12/18/18 18:10) Nausea Past Medical History - General Information source: Patient - Social History Smoking Status: Never Smoker Chew tobacco use (# tins/day): No Frequency of alcohol use: None Drug Abuse: None Lives with: Family Family History: Reviewed & Not Pertinent Patient has suicidal ideation: No Patient has homicidal ideation: No - Past Medical History Cardiac Medical History: Reports: Hx Hypercholesterolemia, Hx Hypertension - PO MEDS Pulmonary Medical History: Reports: Hx COPD Comment Only: Hx Bronchitis - HX. OF BRONCHITIS EENT Medical History: Reports: None Neurological Medical History: Reports: None Endocrine Medical History: Reports: Hx Hypothyroidism Renal/ Medical History: Reports: None Malignancy Medical History: Reports: None GI Medical History: Reports: None Musculoskeletal Medical History: Reports Hx Arthritis - ARTHRITIS IN BACK - ON PAIN MANAGEMENT, Reports Hx Musculoskeletal Deformity, Reports Hx Musculoskeletal Trauma Skin Medical History: Reports None Psychiatric Medical History: Reports: Hx Anxiety, Hx Attention Deficit Hyperactivity Disorder, Hx Bipolar Disorder, Hx Depression, Hx Schizophrenia Traumatic Medical History: Reports: Hx Fractures - Left forearm Infectious Medical History: Reports: None Past Surgical History: Reports: Hx Cholecystectomy, Hx Hysterectomy, Hx Orthopedic Surgery - ORIF left distal radius fracture right tkr - Immunizations Immunizations up to date: Yes Hx Diphtheria, Pertussis, Tetanus Vaccination: Yes - 05/04/2018 IN THE ER Review of Systems - Review of Systems Constitutional: No symptoms reported EENT: No symptoms reported Cardiovascular: No symptoms reported Respiratory: No symptoms reported Gastrointestinal: No symptoms reported Genitourinary: No symptoms reported Female Genitourinary: No symptoms reported Musculoskeletal: Joint pain, Joint swelling Skin: No symptoms reported Hematologic/Lymphatic: No symptoms reported Neurological/Psychological: No symptoms reported -: Yes All other systems reviewed and negative Physical Exam - Vital signs Vitals: Temp Pulse Resp BP Pulse Ox 98.1 F 65 18 128/62 H 94 12/18/18 18:15 12/18/18 18:15 12/18/18 18:15 12/18/18 18:15 12/18/18 18:15 Interpretation: Normal - General General appearance: Appears well, Alert - HEENT Head: Normocephalic, Atraumatic Eyes: Normal Pupils: PERRL - Respiratory Respiratory status: No respiratory distress Chest status: Nontender Breath sounds: Normal Chest palpation: Normal - Cardiovascular Rhythm: Regular Heart sounds: Normal auscultation Murmur: No - Abdominal Inspection: Normal Distension: No distension Bowel sounds: Normal Tenderness: Nontender Organomegaly: No organomegaly - Back Back: Normal, Nontender - Extremities General upper extremity: Normal color, Normal temperature General lower extremity: Normal inspection, Nontender, Normal color, Normal ROM, Normal temperature, Normal weight bearing. No: Candace's sign Elbow: Tender, Deformity, Ecchymosis, Limited ROM Forearm: Tender - Neurological Neuro grossly intact: Yes Cognition: Normal Orientation: AAOx4 Alexis Coma Scale Eye Opening: Spontaneous [place] Coma Scale Verbal: Oriented Alexis Coma Scale Motor: Obeys Commands Alexis Coma Scale Total: 15 Speech: Normal Motor strength normal: LUE, RUE, LLE, RLE Sensory: Normal - Psychological Associated symptoms: Normal affect, Normal mood - Skin Skin Temperature: Warm Skin Moisture: Dry Skin Color: Normal Course - Re-evaluation Re-evalutation: 12/18/18 21:22 Patient was treated with ice packs morphine and Zofran. After looking at the x- ray pictures patient was treated with a long-arm posterior splint and the orthopedic on-call was paged. He never did return my call. Patient was discharged home with instructions to continue with her Vicodin 03/13/2025 and to call the orthopedic surgeon in the morning. Dr. Davison has done her previous surgeries so she is to call him in the morning. Her last previous surgery was 3 weeks ago. This is a new break. Patient verbalized understanding and agreement with treatment plan and she was discharged home with her family. - Vital Signs Vital signs: Temp Pulse Resp BP Pulse Ox 98.1 F 65 18 128/62 H 94 12/18/18 18:15 12/18/18 18:15 12/18/18 18:15 12/18/18 18:15 12/18/18 18:15 - Diagnostic Test Radiology reviewed: Image reviewed, Reports reviewed - Consults [place] Time consulted: 18:55 Reason for consultation: 12/18/18 19:48 recent surgery left forearm new fracture left olecranon Consulted provider: other - Did not get a return call Procedures - Immobilization Left Elbow Time completed: 19:23 Pre-Proc Neuro Vasc Exam: Normal Immobilizer type: Long arm posterior Performed by: PCT Post-Proc Neuro Vasc Exam: Normal Alignment checked and good: Yes Discharge - Discharge Clinical Impression: Closed fracture of left olecranon process Qualifiers: Encounter type: initial encounter Qualified Code(s): S52.022A - Displaced fracture of olecranon process without intraarticular extension of left ulna, initial encounter for closed fracture Contusion of rib on left side Qualifiers: Encounter type: initial encounter Qualified Code(s): S20.212A - Contusion of left front wall of thorax, initial encounter Condition: Stable Disposition: HOME, SELF-CARE Additional Instructions: Fracture of olecranon You have a fracture of the elbow. The initial treatment is immobilization, elevation of the injury, and cold packs. The length of time required for healing depends on the location and type of fracture, and on the age of the patient. Rib Contusion You have been diagnosed as having bruised ribs. It will usually take a few weeks for these injured ribs to heal. You should cough or take a deep breath at least every hour or two to prevent lung complications. You should not engage in any strenuous physical activity until released by your physician. The usual rule is "if it hurts, don't do it." Return if you develop any of the following: (1) Fever or chills. (2) Persistent cough, coughing up blood, or shortness of breath. (3) Increasing pain. (4) Weakness, lightheadedness, or fainting. Splint Pending Casting Your injury can't be casted until the swelling has subsided. Therefore, a temporary splint has been placed to protect the injury. You will probably need surgery on this fracture. Full use of an injured area is not possible in a splint. You should follow the doctor's instructions concerning rest, ice, and elevation of the injury. Never do anything which causes pain under the splint. Keep the splint on ALL THE TIME until you return for casting. If there is unexpected severe pain, or numbness, discoloration, or swelling beyond the splint, you should return at once. Ice & Elevation Apply ice packs frequently against the painful area. Many different schedules are recommended, such as "20 minutes on, 20 minutes off" or "one hour ice, two hours rest." If you need to work, you may need to go longer between ice treatments. You should plan to have the area ice packed AT LEAST one-fourth of the time. The ice should be applied over the wrap, tape, or splint, or over a layer of cloth -- not directly against the skin. Some ice bags have a built-in cloth and can be put directly on the skin. Your injured part should be elevated as much as possible over the next 48 hours. Try to keep the injury above the level of the heart. Avoid use of the injured area. Elevation and rest will decrease the swelling. Continue taking your narcotics that you have at home for your previous fracture Pain Medication Injection You have received an injection of a pain medication. You should experience significant pain relief within 45 minutes. This drug is a narcotic -- it will impair your judgement, slow your reaction time and make you sleepy (as well as relieve your pain). Narcotics also can cause nausea. You should not drive, work with machinery, or perform any task requiring mental alertness until all effects of the medication are gone -- six to eight hours. Do not take any alcohol, or sedatives, and do not take any other medication without checking with your physician. Antinausea Medication You have been given a medication to suppress nausea and vomiting. This type of medication can be given as a shot, pill, or suppository. It will usually last for many hours. Pills and shots usually last six to eight hours, suppositories last about 12 hours. For the typical illness, only one or two doses of the medication may be necessary. Mild lightheadedness may occur. This type of medicine can cause drowsiness. Do not drive or operate dangerous machinery while under its influence. Do not mix with alcohol. See your doctor at once if you have muscle spasms or tightness, or uncontrollable motions (particularly of the neck, mouth, or jaw). Persistent vomiting or severe lightheadedness should also be evaluated by the physician. FOLLOW-UP CARE: If you have been referred to a physician for follow-up care, call the physicians office for an appointment as you were instructed or within the next two days. If you experience worsening or a significant change in your symptoms, notify the physician immediately or return to the Emergency Department at any time for re-evaluation. Forms: Elevated Blood Pressure Referrals: ELVER SEYMOUR MD [Primary Care Provider] - Follow up as needed PRIYA DAVISON DO [ACTIVE STAFF] - Follow up tomorrow
== END 2018-12-18 20:07 | disposition home or self-care (01) ==
LOC: ER 18:03
DX: S20.212A Contusion of left front wall of thorax, initial encounter (principal); S52.022A Displaced fracture of olecranon process without intraarticular extension of left ulna, initial encounter for closed fracture; M79.602 Pain in left arm; W18.30XA Fall on same level, unspecified, initial encounter; E78.00 Pure hypercholesterolemia, unspecified; I10 Essential (primary) hypertension; Z90.49 Acquired absence of other specified parts of digestive tract; Z90.710 Acquired absence of both cervix and uterus
CPT/HCPCS: 99283; 96374; 73090; 71101; 29105; A9270; J2270; S0119

== ENCOUNTER → 2019-06-10 | Outpatient (CLI) | payer MEDICARE, MEDICAID ==
--- NOTE | 2019-06-10 10:18 | RADIOLOGY REPORT (SQ) ---
EXAM DESCRIPTION: KNEE BILATERAL 1-2 VIEWS COMPLETED DATE/TIME: 06/10/2019 9:56 am REASON FOR STUDY: M54.5 LOW BACK PAIN, M25.569 PAIN IN UNSPECIFIED KNEE M54.5 LOW BACK PAIN M25.569 PAIN IN UNSPECIFIED KNEE COMPARISON: None. NUMBER OF VIEWS: Four views. TECHNIQUE: AP and lateral standing bilateral knees. LIMITATIONS: None. FINDINGS: MINERALIZATION: Normal. RIGHT KNEE BONES: Total knee arthroplasty changes. No evidence of hardware complication. LEFT KNEE BONES: No acute fracture. No worrisome bone lesions. MEDIAL COMPARTMENT: No significant osteophytes. No joint space narrowing. No chondrocalcinosis. LATERAL COMPARTMENT: No significant osteophytes. No joint space narrowing. No chondrocalcinosis. PATELLOFEMORAL COMPARTMENT: No significant osteophytes. No joint space narrowing. No chondrocalc inosis. IMPRESSION: 1. Total knee arthroplasty of the right knee. No evidence of hardware complication. 2. Normal left knee TECHNICAL DOCUMENTATION: JOB ID: [id number] [employer]- All Rights Reserved Reading location - IP/workstation name: [email or web address]
== END ==
LOC: RAD 09:36
PROVIDERS: ATTEND Nurse Practitioner Family
DX: M54.5 Low back pain (principal); M25.561 Pain in right knee; Z96.651 Presence of right artificial knee joint